=== PATIENT | male | born 1965 | race Hispanic/Latino ===

== ENCOUNTER 2019-04-23 09:42 | Inpatient (IN) | payer MEDICAID ==
[~2019-04-23] VITALS: Ht 167.6 cm; Wt 56.5 kg
[2019-04-23] VITALS (25 sets, daily range): BP systolic 90–171; BP diastolic 62–113
[2019-04-23] MEDS ORDERED: FURO20TA4 PO (10:28)
[2019-04-23] MEDS ORDERED: TAMS-1 PO (10:28)
[2019-04-23] MEDS ORDERED: SODIUM CHLORIDE 0.9% 1000ML 2,000 ML IV ONE (12:00)
[2019-04-23] MEDS ORDERED: PROPOFOL 10 MG/ML 20ML VIAL IV ONE ×4 (12:03→12:23)
[2019-04-23] MEDS ORDERED: FENTANYL CITRATE PF 50 MCG/1 ML 2ML VIAL ONE (12:20)
[2019-04-23] MEDS ORDERED: SIMETHICONE 40 MG/0.6 ML ML ONE (13:28)
--- NOTE | 2019-04-23 14:00 | NUR ---
PATIENT UP TO BATHROOM UNABLE TO PASS ANY GAS OR URINATE, BACK TO BED C/O SEVERE PAIN. DR ANGELES NOTIFIED OF PAIN , ABD 2VIEWS ORDERED.
--- NOTE | 2019-04-23 14:30 | NUR ---
DR ANGELES CALLED AGAIN FOR PAIN MEDS SHANNON ORDERED AND GIVEN. Addendum: 04/23/19 at 1736 by ROSI HENLEY RN SHANNON WATT AT [id number]
[2019-04-23] MEDS ORDERED: MORPHINE SULFATE 2 MG/ML 1ML SYG ONE (15:29)
[2019-04-23] MEDS ORDERED: MORPHINE SULFATE 2 MG/ML 1ML SYG IVP PRN (16:30)
[2019-04-23] MEDS: CEFOXITIN SODIUM 1 GM VIAL IVP SCH (17:47)
[2019-04-23] MEDS: SODIUM CHLORIDE 0.9% 1000ML 1,000 ML IV SCH (17:47)
[2019-04-23] MEDS ORDERED: MORPHINE SULFATE 2 MG/ML 1ML SYG IVP ONE (19:00)
[2019-04-23] MEDS ORDERED: ONDANSETRON HCL 4 MG/2 ML VIAL IVP PRN (19:00)
--- NOTE | 2019-04-23 20:03 | NUR ---
BLADDER SCAN WAS DONE PRIOR TO CLINE CATH ,RECORDING AT 0 POST VOID . NEW ORDER TO INSERT CLINE TO MONITOR AND HELP RELIEVE PRESSURE . CLINE CATH 16FER INSEERTED USING STERILE TECHNIQUE . 50C OF YELLOW COLORED URINE OUPT TO CLINE BAG. PATIENT TOLERATED WELL
[2019-04-23 20:18] LABS: BASOPHILS % (AUTO) 0.8 % (0.0-5.0); EOSINOPHILS % (AUTO) 0.3 % (0.0-8.0); HEMATOCRIT 51.9 % (42-54); LYMPHOCYTES % (AUTO) 16.3 % (21.0-51.0); MEAN CORPUSCULAR HGB CONC 33.2 g/dL (32.0-36.0); MEAN CORPUSCULAR VOLUME 93.5 fL (79-99); MONOCYTES % (AUTO) 3.6 % (3.0-13.0); NUCLEATED RED BLOOD CELLS 0.1 % (0.0-0.19); PLATELET COUNT (AUTO) 286 K/uL (130-400); RED BLOOD CELL COUNT(AUTO) 5.55 MIL/uL (4.50-6.20); RED CELL DISTRIBUTION WIDTH 12.8 % (11.0-15.5); WHITE BLOOD COUNT (AUTO) 1.7 K/uL (4.8-10.8)
[2019-04-23 20:26] LABS: CREATININE 1.3 mg/dL (0.5-1.5); POTASSIUM 3.4 mmol/L (3.5-5.1)
[2019-04-23] MEDS ORDERED: SIMETHICONE 80 MG TAB.CHEW PO PRN (20:30)
--- NOTE | 2019-04-23 23:11 | NUR ---
paged sponge fisherman pt bp 97/49, hr 166, r 23. fallon Ren ordered a one time ns bolus. Reports that the abd xray done at the beginning of the shift showed gas in the abdomen and to administer the simethicone and pain medications.
[2019-04-23] MEDS: MORPHINE SULFATE 2 MG/ML 1ML SYG IVP PRN (23:27)
[2019-04-24] VITALS (47 sets, daily range): BP systolic 76–147; BP diastolic 36–82
[2019-04-24] MEDS: METOPROLOL TARTRATE 1 MG/ML 5ML VIAL IV PRN (01:03)
[2019-04-24] MEDS: CEFOXITIN SODIUM 1 GM VIAL IVP SCH ×3 (01:03→16:52)
--- NOTE | 2019-04-24 01:19 | NUR ---
ELEVATED HR ADMINISTERED METOPROLOL 5MG PER MAR FOR HR >120. BP 103/73, MAP 84, HR 150. WILL CONTINUE TO MONITOR, PT ON VS MACHINE FOR MONITORING.
--- NOTE | 2019-04-24 02:24 | NUR ---
PAGED MANAGER ASSEMBLY BP 89/63, HR 130. NS CONTINUES AT 75 CC/HR. CONTINUOUS VS MONITORING ON. BERE ASHFORD ORDERED AN EKG TO BE DONE NOW AND WILL COME TO ASSESS THE PATIENT.
--- NOTE | 2019-04-24 02:27 | NUR ---
MICHAEL WHITTENP ASSESSED PT FISH, DIRECTOR OF MANAGED SERVICES ASSESS CLINE, NO ABNORMALITIES NOTED. ASSESSED ABD, ABD REMAINS TENDER. FISH ORDERED A BLADDER SCAN AND EXPLAINED TO PATIENT THAT THERE IS EXCESS GAS IN THE ABD. BLADDER SCAN SHOWED 0 CC. ORDERED TO CONTINUE MONITORING THE PATIENT.
[2019-04-24] MEDS ORDERED: KETOROLAC TROMETHAMINE 15MG/ML ONE (02:42)
[2019-04-24] MEDS ORDERED: KETOROLAC TROMETHAMINE 15MG/ML IV ONE (02:45)
[2019-04-24 05:16] LABS: BASOPHILS % (AUTO) 0.1 % (0.0-5.0); EOSINOPHILS % (AUTO) 0.1 % (0.0-8.0); HEMATOCRIT 44.8 % (42-54); LYMPHOCYTES % (AUTO) 3.8 % (21.0-51.0); MEAN CORPUSCULAR HEMOGLOBIN 31.9 pg (27.0-33.0); MEAN CORPUSCULAR HGB CONC 33.9 g/dL (32.0-36.0); MEAN CORPUSCULAR VOLUME 94.2 fL (79-99); NUCLEATED RED BLOOD CELLS 0.1 % (0.0-0.19); PLATELET COUNT (AUTO) 231 K/uL (130-400); RED BLOOD CELL COUNT(AUTO) 4.76 MIL/uL (4.50-6.20); WHITE BLOOD COUNT (AUTO) 5.4 K/uL (4.8-10.8)
--- NOTE | 2019-04-24 05:25 | NUR ---
Received pt from Nurse Farooq, transfered due to hypotension.CT abdomen was done and preliminary result revealed dilated multiple bowel loops,suggestive for bowel perforation and small amount of free fluid in the pelvis.Pt. is alert and oriented,continue to complain of abdominal pain.Pt.v/s upon arrival is BP 147 /82 HR 122 ,Sating 95% on room air.Pt. instructed to use call light for assistance.
[2019-04-24] MEDS: SODIUM CHLORIDE 0.9% 1000ML 1,000 ML IV SCH ×2 (05:26→08:33)
[2019-04-24 05:28] LABS: CREATININE 2.4 mg/dL (0.5-1.5); POTASSIUM 3.8 mmol/L (3.5-5.1)
--- NOTE | 2019-04-24 05:41 | NUR ---
KARTHIK PAGED/ CALL RETURNED INFORMED KARTHIK OF THE PT TRANSFER TO ICU AND CT ABD/ PELVIS RESULTS KARTHIK ASKED IF THE PT WAS ON FLUIDS. AND THAT SHE WOULD SEE THE PT IN THE AM
[2019-04-24] MEDS ORDERED: LACTATED RINGERS 1000ML IV SCH (06:15)
--- NOTE | 2019-04-24 06:15 | NUR ---
IRAM [place] for [employer] was called and notified of new consult, updated with pt condition, and V/S and lab results received order to give @ Liters of LR Bolus.Will continue to monitor pt.
--- NOTE | 2019-04-24 07:00 | NUR ---
DR ANGELES AT BEDSIDE, NEW ORDERS GIVEN
--- NOTE | 2019-04-24 07:30 | NUR ---
Bedside report given to incoming NOD using SBAR all questions answered.LR Bolus infusing well, pt remained alert and coherent . here making rounds.
--- NOTE | 2019-04-24 07:30 | NUR ---
INSERTED 14 FR NGT TO RT NARE, ORDERED PER DR ANGELES, PLACED TO LIS,GREEN LIGHT COLORED DRAINAGE NOTED TO SUCTION CANISTER
[2019-04-24] MEDS ORDERED: POTASSIUM CHLORIDE 20 MEQ/100 ML BAG IV SCH (08:00)
[2019-04-24] MEDS ORDERED: SODIUM CHLORIDE 0.9% 1000ML 1,000 ML IV SCH ×6 (10:00→16:45)
[2019-04-24 10:15] LABS: ABG BASE EXCESS -11.4 mmol/L (-2.0-3.0); ABG HCO3 13.6 mmol/L (21.0-28.0); ABG OXYGEN SATURATION 92.3 % (95.0-99.0); ABG PCO2 29 mmHg (35-48)
[2019-04-24] MEDS ORDERED: SODIUM BICARB 50MEQ 50ML VIAL ONE ×2 (10:17→10:23)
[2019-04-24] MEDS ORDERED: SODIUM BICARB 50MEQ 50ML VIAL IV SCH ×2 (10:30→12:45)
[2019-04-24] MEDS ORDERED: LIDOCAINE HCL-MPF 1% 2ML VIAL ONE (10:33)
[2019-04-24] MEDS ORDERED: FENTANYL 2500MCG+NS 250ML 250 ML IV ONE (10:40)
--- NOTE | 2019-04-24 10:40 | NUR ---
INTUBATED AT THIS TIME ETT 7.5, 23 AT THE LIP, SIMV RATE 24, TV 550, PEEP 5, PSV 10, FIO2 60%
[2019-04-24] MEDS ORDERED: NOREPINEPHRINE 4MG/NS 250ML 250 ML IV SCH (10:45)
[2019-04-24] MEDS ORDERED: METRONIDAZOLE 500MG/100ML BAG 100 ML IV SCH ×2 (11:00→14:00)
[2019-04-24] MEDS: ZOSYN 3.375GM+NS 50ML 50 ML IV SCH ×2 (11:05→17:21)
[2019-04-24] MEDS: SODIUM BICARB 8.4% 50ML SYRING 150 MEQ in DEXTROSE 5%-WATER 1,000 ML IV SCH ×2 (11:06→18:30)
[2019-04-24] MEDS: NOREPINEPHRINE 4MG/NS 250ML 250 ML IV SCH ×3 (11:09→23:08)
[2019-04-24] MEDS: MIDAZOLAM 100MG-0.9% NS 100ML 100 ML IV PRN (11:10)
[2019-04-24] MEDS ORDERED: HYDROCORTISONE SOD SUCCINATE 100 MG/2 ML VIAL IM SCH ×2 (11:15→21:00)
[2019-04-24 11:16] LABS: HEMATOCRIT 41.9 % (42-54); MEAN CORPUSCULAR HGB CONC 34.2 g/dL (32.0-36.0); MEAN CORPUSCULAR VOLUME 93.5 fL (79-99); NUCLEATED RED BLOOD CELLS 0.1 % (0.0-0.19); PLATELET COUNT (AUTO) 151 K/uL (130-400); RED BLOOD CELL COUNT(AUTO) 4.48 MIL/uL (4.50-6.20); RED CELL DISTRIBUTION WIDTH 12.9 % (11.0-15.5); WHITE BLOOD COUNT (AUTO) 6.1 K/uL (4.8-10.8)
[2019-04-24] MEDS: FLUCONAZOLE 400 MG/NS 200 ML 200 ML IV SCH (11:36)
[2019-04-24 11:41] LABS: INR 1.31 (0.85-1.15); PARTIAL THROMBOPLASTIN TIME 31.5 SEC (26.3-35.5); PROTHROMBIN TIME 13.6 SEC (9.6-11.6)
[2019-04-24 11:43] LABS: POTASSIUM 4.3 mmol/L (3.5-5.1)
[2019-04-24 11:57] LABS: ALBUMIN 2.2 g/dL (3.5-5.0); TOTAL PROTEIN, SERUM 5.1 g/dL (6.0-8.3)
[2019-04-24] MEDS ORDERED: GLYCOPYRROLATE 1 MG/5 ML SYRINGE ONE (12:00)
[2019-04-24] MEDS ORDERED: SUCCINYLCHOLINE 200MG/10ML SYR ONE (12:00)
[2019-04-24] MEDS ORDERED: ONDANSETRON HCL 4 MG/2 ML VIAL ONE (12:00)
[2019-04-24] MEDS ORDERED: DEXAMETHASONE SOD PHOSPHATE 10MG/ML 1ML VIAL ONE (12:00)
[2019-04-24] MEDS ORDERED: LIDOCAINE PF 2% 5ML ABBOJECT ONE (12:00)
[2019-04-24] MEDS ORDERED: ROCURONIUM 10MG/1ML SYR 10 MG/ML ML ONE ×2 (12:01→15:02)
[2019-04-24] MEDS ORDERED: PROPOFOL 10 MG/ML 20ML VIAL IV ONE (12:01)
[2019-04-24] MEDS ORDERED: NEOSTIGMINE 5MG/5ML SYR IV ONE (12:01)
[2019-04-24] MEDS ORDERED: MIDAZOLAM HCL 1 MG/ML 2ML VIAL ONE (12:01)
[2019-04-24] MEDS ORDERED: FENTANYL CITRATE PF 50 MCG/1 ML 2ML VIAL ONE (12:02)
[2019-04-24] MEDS ORDERED: DEXTROSE 50%-WATER 50 ML DISP.SYRIN IV ONE (12:29)
[2019-04-24] MEDS ORDERED: LIDOCAINE HCL-MPF 1% 2ML VIAL IV PRN (12:30)
[2019-04-24 12:39] LABS: ABG BASE EXCESS -6.3 mmol/L (-2.0-3.0); ABG OXYGEN SATURATION 99.3 % (95.0-99.0); ABG PCO2 32 mmHg (35-48)
[2019-04-24] MEDS: HYDROCORTISONE SOD SUCCINATE 100 MG/2 ML VIAL IV SCH ×2 (12:49→20:55)
[2019-04-24] MEDS: DEXTROSE 50%-WATER 50 ML DISP.SYRIN IV SCH (12:51)
--- NOTE | 2019-04-24 13:50 | NUR ---
TRANSFERRED TO THE OR VIA BED, ACCOMPANIED PER OR NURSE RE MCKINNON, TRANSPORTER, AND USAMANA
--- NOTE | 2019-04-24 14:23 | NUR ---
TYRONE NOTE PATIENT VENTED, NO FAMILY AT BEDSIDE. WILL MONITOR Addendum: 04/24/19 at 1424 by RE JETER Amended: Links added.
[2019-04-24 14:36] LABS: ABG BASE EXCESS -0.6 mmol/L (-2.0-3.0); ABG HCO3 22.7 mmol/L (21.0-28.0); ABG OXYGEN SATURATION 98.7 % (95.0-99.0); ABG PCO2 33 mmHg (35-48)
[2019-04-24] MEDS ORDERED: POTASSIUM CHLORIDE 20MEQ/100ML 200 ML IV ONE (14:39)
[2019-04-24] MEDS ORDERED: ALBUMIN (HUMAN) 5% 500 ML IV ONE (15:42)
[2019-04-24] MEDS ORDERED: EPINEPHRINE 1 MG/ML AMPULE ONE (15:45)
[2019-04-24] MEDS ORDERED: PHENYLEPHRINE HCL 10 MG/ML 1ML VIAL IV ONE (15:45)
[2019-04-24] MEDS ORDERED: ONDANSETRON HCL 4 MG/2 ML VIAL IVP PRN (16:30)
[2019-04-24] MEDS: METRONIDAZOLE 500MG/100ML BAG 100 ML IV SCH (18:38)
[2019-04-24 19:46] LABS: ALBUMIN 2.2 g/dL (3.5-5.0); BILIRUBIN,TOTAL 1.9 mg/dL (0.2-1.0); CREATININE 1.6 mg/dL (0.5-1.5); POTASSIUM 3.7 mmol/L (3.5-5.1); TOTAL PROTEIN, SERUM 4.4 g/dL (6.0-8.3)
[2019-04-24] MEDS: POTASSIUM CHLORIDE 20MEQ/100ML 100 ML IV PRN (20:55)
[2019-04-24] MEDS: MAGNESIUM 2GM PREMIX 50ML 50 ML IV PRN (21:17)
--- NOTE | 2019-04-24 22:00 | NUR ---
Fab SMITH NP NOTIFIED OF PM CMP RESULTS - K 3.7, MAGNESIUM 1.3, CALCIUM 6.4 ,NA 149. CL 112, BUN 25, CR 1.6, HR 122-125 ST,-NEW ORDERS RECEIVED TO CHANGE NS TO LR @ 150ML/HR AND ALSO CONTINUE SODIUM BICARBONATE GTT IV, 1 GRAM CA GLUCONATE, K AND MAG REPLACEMENTS.
[2019-04-24] MEDS ORDERED: CALCIUM GLUCONATE 1 GM/10 ML VIAL IV ONE ×2 (22:07→22:30)
[2019-04-24] MEDS: LACTATED RINGERS 1000ML 1,000 ML IV SCH (22:30)
[2019-04-25] VITALS (64 sets, daily range): BP systolic 85–132; BP diastolic 51–85
[2019-04-25] MEDS: CEFOXITIN SODIUM 1 GM VIAL IVP SCH ×3 (00:44→17:08)
[2019-04-25] MEDS: MIDAZOLAM 100MG-0.9% NS 100ML 100 ML IV PRN (00:45)
[2019-04-25 01:06] LABS: MAGNESIUM 1.7 mg/dL (1.80-2.40); POTASSIUM 3.2 mmol/L (3.5-5.1)
[2019-04-25] MEDS: MAGNESIUM 2GM PREMIX 50ML 50 ML IV PRN (01:36)
[2019-04-25] MEDS: SODIUM BICARB 8.4% 50ML SYRING 150 MEQ in DEXTROSE 5%-WATER 1,000 ML IV SCH ×2 (01:37→09:42)
[2019-04-25] MEDS: POTASSIUM CHLORIDE 20MEQ/100ML 100 ML IV PRN ×7 (01:37→20:23)
[2019-04-25] MEDS: METRONIDAZOLE 500MG/100ML BAG 100 ML IV SCH ×3 (04:24→18:31)
[2019-04-25 04:35] LABS: BASOPHILS % (AUTO) 0.1 % (0.0-5.0); LYMPHOCYTES % (AUTO) 2.4 % (21.0-51.0); MEAN CORPUSCULAR HEMOGLOBIN 31.1 pg (27.0-33.0); MEAN CORPUSCULAR HGB CONC 34.2 g/dL (32.0-36.0); MONOCYTES % (AUTO) 1.5 % (3.0-13.0); PLATELET COUNT (AUTO) 111 K/uL (130-400); RED BLOOD CELL COUNT(AUTO) 3.63 MIL/uL (4.50-6.20); RED CELL DISTRIBUTION WIDTH 12.8 % (11.0-15.5); WHITE BLOOD COUNT (AUTO) 8.1 K/uL (4.8-10.8)
[2019-04-25] MEDS: LACTATED RINGERS 1000ML 1,000 ML IV SCH ×3 (04:57→17:15)
[2019-04-25] MEDS: FENTANYL 2500MCG+NS 250ML 250 ML IV PRN ×2 (04:58→18:24)
[2019-04-25 05:19] LABS: CREATININE 1.4 mg/dL (0.5-1.5); MAGNESIUM 2.2 mg/dL (1.80-2.40); PHOSPHORUS 1.3 mg/dL (2.5-4.9); POTASSIUM 3.4 mmol/L (3.5-5.1)
[2019-04-25 06:22] LABS: ABG BASE EXCESS 3.1 mmol/L (-2.0-3.0); ABG HCO3 23.1 mmol/L (21.0-28.0); ABG OXYGEN SATURATION 97.7 % (95.0-99.0); ABG PCO2 25 mmHg (35-48)
[2019-04-25] MEDS: DEXTROSE 50%-WATER 50 ML DISP.SYRIN IV SCH ×2 (06:39→22:30)
[2019-04-25] MEDS: FLUCONAZOLE 400 MG/NS 200 ML 200 ML IV SCH (08:24)
[2019-04-25] MEDS: HYDROCORTISONE SOD SUCCINATE 100 MG/2 ML VIAL IV SCH ×2 (08:24→20:24)
[2019-04-25] MEDS ORDERED: FLUCONAZOLE 400 MG/NS 200 ML 200 ML IV SCH (09:00)
[2019-04-25] MEDS: POTASSIUM PHOSPHATE 15 MMOL in SODIUM CHLORIDE 0.9% 250 ML IV SCH (09:32)
[2019-04-25] MEDS: NOREPINEPHRINE 4MG/NS 250ML 250 ML IV SCH ×2 (10:22→17:09)
--- NOTE | 2019-04-25 10:27 | NUR ---
TYRONE NOTE PATIENT VENTED, NO FAMILY AT BEDSIDE. WILL MONITOR Addendum: 04/25/19 at 1028 by LOCO GREENFIELD RN CM Amended: Links added.
[2019-04-25] MEDS ORDERED: ALBUMIN (HUMAN) 5% 250 ML IV SCH (11:30)
[2019-04-25] MEDS ORDERED: ALBUMIN (HUMAN) 5% 250 ML IV ONE (11:38)
[2019-04-25] MEDS ORDERED: PHARMACY COMMUNICATION MISC SCH (11:45)
[2019-04-25] MEDS ORDERED: SODIUM CHLORIDE 0.9% 500ML 500 ML IV PRN (13:59)
[2019-04-25] MEDS ORDERED: HEPARIN SODIUM 5000UNIT/ML 1ML VIAL SQ SCH (21:00)
[2019-04-25] MEDS ORDERED: DEXTROSE 50%-WATER 25 GM/50 ML VIAL IV PRN (23:00)
[2019-04-26] VITALS (55 sets, daily range): BP systolic 102–136; BP diastolic 64–96
[2019-04-26] MEDS: LACTATED RINGERS 1000ML 1,000 ML IV SCH ×2 (00:27→06:35)
[2019-04-26] MEDS: MIDAZOLAM 100MG-0.9% NS 100ML 100 ML IV PRN (00:27)
[2019-04-26] MEDS: NOREPINEPHRINE 4MG/NS 250ML 250 ML IV SCH ×2 (00:28→10:22)
[2019-04-26] MEDS: CEFOXITIN SODIUM 1 GM VIAL IVP SCH ×3 (01:43→16:04)
[2019-04-26] MEDS: DEXTROSE 50%-WATER 50 ML DISP.SYRIN IV SCH (04:28)
[2019-04-26] MEDS: METRONIDAZOLE 500MG/100ML BAG 100 ML IV SCH ×3 (04:29→20:09)
[2019-04-26 04:59] LABS: MAGNESIUM 1.9 mg/dL (1.80-2.40); PHOSPHORUS 2.2 mg/dL (2.5-4.9); POTASSIUM 3.5 mmol/L (3.5-5.1)
[2019-04-26 05:48] LABS: HEMATOCRIT 29.2 % (42-54); LYMPHOCYTES % (AUTO) 0.9 % (21.0-51.0); MEAN CORPUSCULAR HEMOGLOBIN 31.2 pg (27.0-33.0); MEAN CORPUSCULAR HGB CONC 34.1 g/dL (32.0-36.0); MEAN CORPUSCULAR VOLUME 91.4 fL (79-99); MONOCYTES % (AUTO) 55.6 % (3.0-13.0); NEUTROPHILS % (AUTO) 43.5 % (40.0-77.0); PLATELET COUNT (AUTO) 63 K/uL (130-400); RED CELL DISTRIBUTION WIDTH 13.3 % (11.0-15.5); WHITE BLOOD COUNT (AUTO) 13.9 K/uL (4.8-10.8)
[2019-04-26] MEDS: POTASSIUM CHLORIDE 20MEQ/100ML 100 ML IV PRN ×3 (06:09→13:28)
[2019-04-26] MEDS: MAGNESIUM 2GM PREMIX 50ML 50 ML IV PRN (06:10)
[2019-04-26 07:59] LABS: ABG BASE EXCESS -0.7 mmol/L (-2.0-3.0); ABG HCO3 21.9 mmol/L (21.0-28.0); ABG OXYGEN SATURATION 98.4 % (95.0-99.0); ABG PCO2 31 mmHg (35-48)
[2019-04-26] MEDS: FENTANYL 2500MCG+NS 250ML 250 ML IV PRN (08:01)
[2019-04-26] MEDS ORDERED: PANTOPRAZOLE 40 MG/VIAL IVP SCH (09:00)
[2019-04-26] MEDS: FLUCONAZOLE 400 MG/NS 200 ML 200 ML IV SCH (09:18)
[2019-04-26] MEDS: FAMOTIDINE/PF 20 MG/2 ML VIAL IV SCH ×2 (09:19→20:09)
[2019-04-26] MEDS: HYDROCORTISONE SOD SUCCINATE 100 MG/2 ML VIAL IV SCH ×2 (09:19→20:10)
[2019-04-26 11:16] LABS: MAGNESIUM 2.3 mg/dL (1.80-2.40); POTASSIUM 3.6 mmol/L (3.5-5.1)
[2019-04-26] MEDS ORDERED: POTASSIUM PHOS 15 mMOL+NS250ML 250 ML IV PRN (13:15)
[2019-04-26] MEDS ORDERED: FUROSEMIDE 10 MG/ML 4ML VIAL IV SCH (13:15)
[2019-04-26] MEDS ORDERED: DEXTROSE 50%-WATER 25 GM/50 ML VIAL IV PRN (14:00)
--- NOTE | 2019-04-26 15:45 | NUR ---
CONSULT DR QUINN CALLED AND NOTIFIED OF CONSULT; NO NEW ORDERS AT THIS TIME
[2019-04-26] MEDS: POTASSIUM PHOSPHATE 15 MMOL in SODIUM CHLORIDE 0.9% 250 ML IV SCH (15:55)
--- NOTE | 2019-04-26 15:55 | NUR ---
SPOKE WITH ENA FROM LAB AND INFORMED HIM OF ORDER BY DR. SMITH FOR A PERIPHERAL BLOOD SMEAR TO BE READ BY DR. MIRANDA. ENA STATED HE WILL HAVE SAMPLE READY FOR WHEN DR. MIRANDA COMES IN. REPORTED OFF TO PRIMARY NURSE, Hernando AKBAR RN.
[2019-04-26] MEDS ORDERED: DEXTROSE 50%-WATER 50 ML DISP.SYRIN IV ONE (19:17)
[2019-04-27] VITALS (39 sets, daily range): BP systolic 96–182; BP diastolic 55–115
[2019-04-27] MEDS: CEFOXITIN SODIUM 1 GM VIAL IVP SCH ×3 (02:03→17:46)
[2019-04-27] MEDS: METRONIDAZOLE 500MG/100ML BAG 100 ML IV SCH ×3 (03:29→18:58)
[2019-04-27 04:29] LABS: MAGNESIUM 2.1 mg/dL (1.80-2.40); PHOSPHORUS 2.3 mg/dL (2.5-4.9); POTASSIUM 3.6 mmol/L (3.5-5.1)
[2019-04-27 04:34] LABS: HEMATOCRIT 27.8 % (42-54); MEAN CORPUSCULAR HEMOGLOBIN 30.4 pg (27.0-33.0); MEAN CORPUSCULAR HGB CONC 32.8 g/dL (32.0-36.0); MEAN CORPUSCULAR VOLUME 92.7 fL (79-99); PLATELET COUNT (AUTO) 46 K/uL (130-400); RED CELL DISTRIBUTION WIDTH 13.7 % (11.0-15.5); WHITE BLOOD COUNT (AUTO) 11.3 K/uL (4.8-10.8)
[2019-04-27] MEDS: POTASSIUM CHLORIDE 20MEQ/100ML 100 ML IV PRN ×2 (05:34→08:20)
[2019-04-27 05:41] LABS: BAND NEUTROPHILS % (MANUAL) 2 % (0-2); LYMPHOCYTES % (MANUAL) 1 % (22-44); MAN.DIFF COMMENT-IMPRESSION MANUAL DIFFERENTIAL; MONOCYTES % (MANUAL) 4 % (2-9); SEGMENTED NEUTROPHILS % 93 % (40-70)
[2019-04-27 05:42] LABS: PLATELET MORPHOLOGY COMMENT MARKED DECREASE
--- NOTE | 2019-04-27 07:00 | NUR ---
NEURO STATUS PATIENT UNAROUSABLE TO PAIN OR STIMULATION; SEDATION OFF SINCE 1400 YESTERDAY 04/26/19; DR SMITH NOTIFIED; STAT CT ORDERED
[2019-04-27] MEDS ORDERED: NALOXONE HCL 0.4 MG/1 ML ML IVP SCH (08:15)
[2019-04-27] MEDS: FAMOTIDINE/PF 20 MG/2 ML VIAL IV SCH ×2 (08:51→22:38)
[2019-04-27] MEDS: HYDROCORTISONE SOD SUCCINATE 100 MG/2 ML VIAL IV SCH ×2 (08:51→22:38)
[2019-04-27] MEDS: METOPROLOL TARTRATE 1 MG/ML 5ML VIAL IV PRN (08:53)
[2019-04-27] MEDS ORDERED: PROPOFOL 1000 MG/100 ML 100 ML IV ONE (08:58)
[2019-04-27] MEDS ORDERED: FUROSEMIDE 10 MG/ML 4ML VIAL IV SCH (09:00)
--- NOTE | 2019-04-27 09:00 | NUR ---
PATIENT STATUS PATIENT GIVEN NARCAN IV; OPENED EYES; MOVING HANDS; TREMBLING; NOT FOLLOWING COMMANDS; NONPURPOSEFUL MOVEMENTS; HR UP TO 140S; SBP 170S; DR SMITH NOTIFIED;ORDERS GIVEN TO START PATIENT ON PROPOFOL; PATIENT STARTED ON PROPOFOL AND RESEDATED.
[2019-04-27] MEDS: FLUCONAZOLE 400 MG/NS 200 ML 200 ML IV SCH (09:10)
[2019-04-27] MEDS ORDERED: PROPOFOL 1000 MG/100 ML IV PRN (09:15)
[2019-04-27] MEDS ORDERED: PROPOFOL 1000 MG/100 ML 100 ML IV PRN (09:30)
[2019-04-27 11:00] LABS: ABG BASE EXCESS -0.7 mmol/L (-2.0-3.0); ABG HCO3 23.7 mmol/L (21.0-28.0); ABG OXYGEN SATURATION 95.7 % (95.0-99.0); ABG PCO2 38 mmHg (35-48)
--- NOTE | 2019-04-27 11:30 | NUR ---
PATIENT STATUS UPDATE PROPOFOL TURNED OFF, BP CONTINUED TO TREND DOWN, BUT MAP REMAINS <65
[2019-04-27] MEDS: FUROSEMIDE 10 MG/ML 4ML VIAL IV SCH ×2 (12:10→22:39)
--- NOTE | 2019-04-27 14:00 | NUR ---
RD Notification Pt admitted for Perforation Post colonoscopy, currently s/p colotomy repair as per EMR. Pt started on Tube feedings; RD recommendations: Tube Feeding Recommendations: Vital AF 1.2, Goal 60mls/hr (1440mL/1728kcal/108gm Protein/1168 free H2O) Flushes: 140mLs Q 6hrs. Recommendations placed in Pt chart. Pt LBM 04/26/19; noted Green, Liquid/loose, Dark eleuterio urine as per EMR; will continue to monitor. Pt monitored labs: Cl 112, BUN 22, BG 126, Ca 7.0, P 2.3, Alb 2.2. RD to continue to monitor. Please notify RD as additional nutrition concerns arise. Thank you. Addendum: 04/27/19 at [address] Amended: Links added.
--- NOTE | 2019-04-27 17:45 | NUR ---
PATIENT STATUS UPDATE DR SMITH NOTIFIED THAT PATIENT IS NOT WAKING UP AT THIS TIME EVEN THOUGH SEDATION HAS BEEN OFF SINCE 1129; PATIENT WITHDRAWS TO PAIN, BUT DOES NOT OPEN EYES OR TRY TO MOVE; NO NEW ORDERS GIVEN; WILL CONTINUE TO KEEP PATIENT OFF SEDATION UNTIL NECESSARY
[2019-04-28] VITALS (24 sets, daily range): BP systolic 101–149; BP diastolic 56–92
[2019-04-28] MEDS: CEFOXITIN SODIUM 1 GM VIAL IVP SCH ×2 (01:36→09:23)
[2019-04-28] MEDS: METRONIDAZOLE 500MG/100ML BAG 100 ML IV SCH ×3 (02:09→20:10)
[2019-04-28 05:37] LABS: BASOPHILS % (AUTO) 0.1 % (0.0-5.0); HEMATOCRIT 27.6 % (42-54); LYMPHOCYTES % (AUTO) 1.6 % (21.0-51.0); MEAN CORPUSCULAR HEMOGLOBIN 31.6 pg (27.0-33.0); MEAN CORPUSCULAR HGB CONC 34.1 g/dL (32.0-36.0); MEAN CORPUSCULAR VOLUME 92.7 fL (79-99); MONOCYTES % (AUTO) 4.8 % (3.0-13.0); NEUTROPHILS % (AUTO) 93.5 % (40.0-77.0); NUCLEATED RED BLOOD CELLS 0.6 % (0.0-0.19); PLATELET COUNT (AUTO) 34 K/uL (130-400); RED BLOOD CELL COUNT(AUTO) 2.97 MIL/uL (4.50-6.20); RED CELL DISTRIBUTION WIDTH 13.6 % (11.0-15.5)
[2019-04-28 06:06] LABS: ALBUMIN 1.3 g/dL (3.5-5.0); MAGNESIUM 1.8 mg/dL (1.80-2.40)
[2019-04-28] MEDS: POTASSIUM CHLORIDE 20MEQ/100ML 100 ML IV PRN ×4 (06:25→17:24)
[2019-04-28] MEDS: MAGNESIUM 2GM PREMIX 50ML 50 ML IV PRN (06:25)
[2019-04-28 06:45] LABS: CRP QUANTITATIVE 254.1 mg/L (0.00-9.0)
--- NOTE | 2019-04-28 08:00 | NUR ---
PATIENT RECEIVED IN BED, CONTINUES ON VENTILATOR ON THE FOLLOWING SETTINGS: SIMV, 14, TV400,PS10,PEEP5,RAY922% WITH SATURATIONS AT 100%. ETT 7.5 AT THE LIP. PT IS NOT ON ANY SEDATION. PER REPORT, SEDATION WAS TURNED OFF YESTERDAY. PATIENT HAS NOT AWAKE. HE DOES OPENS EYES TO LOUD VERBAL STIMULI BUT DOES NOT TRACK VOICE, WEAK GAG NOTED AND HE DOES NOT PULL WAY TO PAIN WHEN PRESSURE APPLIED TO NAIL BED. PATIENT LIFTS UPPER ARM BUT WITH NO PURPOSEFUL MOVEMENT. NGT TO RIGHT NARE WITH VITAL AF 1.2 GOING AT 40ML/HR WITH GOAL OF 55ML/HR. PATIENT TOLERATING TUBE FEEDING WELL. PICC LINE TO HONEY 3 LUMEN. 2 PORTS PATENT. SCROTAL EDEMA NOTED. ABD INCISION OPEN TO AIR, ILEOSTOMY NOTED WITH PINK STOMA. F/C PATENT AND DRAINING TO GRAVITY. Addendum: 04/28/19 at 1119 by RACHEL LANIER RN RN Amended: Links added.
[2019-04-28 08:29] LABS: ABG BASE EXCESS 1.2 mmol/L (-2.0-3.0); ABG HCO3 25.5 mmol/L (21.0-28.0); ABG OXYGEN SATURATION 95.8 % (95.0-99.0); ABG PCO2 39 mmHg (35-48)
[2019-04-28] MEDS: HYDROCORTISONE SOD SUCCINATE 100 MG/2 ML VIAL IV SCH ×2 (09:23→20:10)
[2019-04-28] MEDS: FLUCONAZOLE 400 MG/NS 200 ML 200 ML IV SCH (09:23)
[2019-04-28] MEDS: FAMOTIDINE/PF 20 MG/2 ML VIAL IV SCH ×2 (09:24→20:10)
[2019-04-28] MEDS ORDERED: VANCOMYCIN PROTOCOL PER PHARMACY IV PRN (10:15)
[2019-04-28] MEDS ORDERED: VANCOMYCIN 1GM+NS 250ML 250 ML IV SCH (10:15)
[2019-04-28] MEDS: FUROSEMIDE 10 MG/ML 4ML VIAL IV SCH (11:46)
[2019-04-28] MEDS: MEROPENEM 500 MG VIAL IV SCH ×2 (11:47→20:09)
--- NOTE | 2019-04-28 13:42 | NUR ---
MD ROUNDS DR. SMITH IN TO SEE PATIENT. UPDATED ON STATUS. NEW ORDERS FOR DR. VILLAREAL CONSULT IN A.M.
[2019-04-28] MEDS ORDERED: FUROSEMIDE 10 MG/ML 4ML VIAL IV SCH (14:15)
[2019-04-28 15:18] LABS: MAGNESIUM 2.1 mg/dL (1.80-2.40); POTASSIUM 3.3 mmol/L (3.5-5.1)
[2019-04-28] MEDS: ARTIFICAL TEARS SOL 15 ML OD SCH (20:23)
[2019-04-29] VITALS (25 sets, daily range): BP systolic 116–172; BP diastolic 67–102
[2019-04-29] MEDS: FUROSEMIDE 10 MG/ML 4ML VIAL IV SCH ×3 (00:08→23:04)
[2019-04-29 03:53] LABS: BASOPHILS % (AUTO) 0.1 % (0.0-5.0); HEMATOCRIT 28.3 % (42-54); MEAN CORPUSCULAR HEMOGLOBIN 30.9 pg (27.0-33.0); MEAN CORPUSCULAR HGB CONC 33.6 g/dL (32.0-36.0); MONOCYTES % (AUTO) 3.4 % (3.0-13.0); NEUTROPHILS % (AUTO) 94.5 % (40.0-77.0); PLATELET COUNT (AUTO) 55 K/uL (130-400); RED BLOOD CELL COUNT(AUTO) 3.08 MIL/uL (4.50-6.20); RED CELL DISTRIBUTION WIDTH 13.8 % (11.0-15.5)
[2019-04-29 04:09] LABS: CREATININE 0.9 mg/dL (0.5-1.5); MAGNESIUM 1.9 mg/dL (1.80-2.40); PHOSPHORUS 3.4 mg/dL (2.5-4.9)
[2019-04-29] MEDS: MEROPENEM 500 MG VIAL IV SCH ×3 (04:17→18:19)
[2019-04-29] MEDS: METRONIDAZOLE 500MG/100ML BAG 100 ML IV SCH ×3 (04:17→18:50)
[2019-04-29 04:18] LABS: POTASSIUM 2.9 mmol/L (3.5-5.1)
[2019-04-29] MEDS: POTASSIUM CHLORIDE 20MEQ/100ML 100 ML IV PRN ×4 (04:21→19:52)
[2019-04-29] MEDS: FLUCONAZOLE 400 MG/NS 200 ML 200 ML IV SCH (08:16)
[2019-04-29] MEDS: FAMOTIDINE/PF 20 MG/2 ML VIAL IV SCH ×2 (08:16→20:01)
[2019-04-29] MEDS: ARTIFICAL TEARS SOL 15 ML OD SCH ×2 (08:16→20:04)
[2019-04-29] MEDS: HYDROCORTISONE SOD SUCCINATE 100 MG/2 ML VIAL IV SCH ×2 (08:16→20:02)
[2019-04-29] MEDS: MAGNESIUM 2GM PREMIX 50ML 50 ML IV PRN (16:08)
[2019-04-29] MEDS ORDERED: METOPROLOL TARTRATE 1 MG/ML 5ML VIAL IV PRN (17:00)
[2019-04-29] MEDS: METOPROLOL TARTRATE 1 MG/ML 5ML VIAL IV SCH ×2 (17:30→23:03)
[2019-04-29] MEDS: ACETAMINOPHEN ELIXIR 650 MG/20.3 ML UDCUP PEG PRN (20:01)
[2019-04-29] MEDS: MORPHINE SULFATE 2 MG/ML 1ML SYG IVP PRN (20:58)
--- NOTE | 2019-04-29 21:02 | NUR ---
CAMP TENDER Flavio notified about pt HR and pt is restrlessand moving ,pt is awake .No new order received.
[2019-04-30] VITALS (29 sets, daily range): BP systolic 107–164; BP diastolic 65–106
[2019-04-30] MEDS: MEROPENEM 500 MG VIAL IV SCH ×3 (02:22→18:02)
[2019-04-30 03:54] LABS: HEMATOCRIT 30.2 % (42-54); MEAN CORPUSCULAR HEMOGLOBIN 31.1 pg (27.0-33.0); MEAN CORPUSCULAR VOLUME 91.5 fL (79-99); NUCLEATED RED BLOOD CELLS 0.1 % (0.0-0.19); PLATELET COUNT (AUTO) 80 K/uL (130-400); RED CELL DISTRIBUTION WIDTH 13.9 % (11.0-15.5); WHITE BLOOD COUNT (AUTO) 18.6 K/uL (4.8-10.8)
[2019-04-30 03:59] LABS: CARBON DIOXIDE 35 mmol/L (21-32); CHLORIDE 113 mmol/L (101-111); CREATININE 0.9 mg/dL (0.5-1.5); GLOMERULAR FILTR. RATE CALC 93 mL/min (>60); GLUCOSE,RANDOM 170 mg/dL (70-105); SODIUM SERUM 153 mmol/L (136-145); UREA NITROGEN, BLOOD 29 mg/dL (7-18)
[2019-04-30] MEDS: METRONIDAZOLE 500MG/100ML BAG 100 ML IV SCH ×3 (04:09→18:03)
[2019-04-30 04:23] LABS: AMMONIA < 10 umol/L (11-32); POTASSIUM 2.9 mmol/L (3.5-5.1)
[2019-04-30] MEDS: POTASSIUM CHLORIDE 20MEQ/100ML 100 ML IV PRN ×7 (05:33→22:42)
[2019-04-30] MEDS: METOPROLOL TARTRATE 1 MG/ML 5ML VIAL IV SCH ×4 (05:33→22:15)
--- NOTE | 2019-04-30 07:25 | NUR ---
Bedside report given to incoming NOD using SBAR,all questions answered.Reviewed labs ,meds and V/S.Pt. remained vented and wakes up occasionaly but does not follow commands.
[2019-04-30] MEDS: FLUCONAZOLE 400 MG/NS 200 ML 200 ML IV SCH (09:03)
[2019-04-30] MEDS: FAMOTIDINE/PF 20 MG/2 ML VIAL IV SCH ×2 (09:03→20:16)
[2019-04-30] MEDS: ACETAMINOPHEN ELIXIR 650 MG/20.3 ML UDCUP PEG PRN ×3 (09:03→20:37)
[2019-04-30] MEDS: ARTIFICAL TEARS SOL 15 ML OD SCH ×2 (09:04→20:16)
[2019-04-30] MEDS: HYDROCORTISONE SOD SUCCINATE 100 MG/2 ML VIAL IV SCH (09:04)
[2019-04-30] MEDS ORDERED: VANCOMYCIN PROTOCOL PER PHARMACY IV SCH (10:45)
--- NOTE | 2019-04-30 11:30 | NUR ---
DR. ANGELES IN TO SEE PT. PLAN OF CARE DISCUSSED. YAZMIN TO LOWER INCISION REMOVED BY MD AND WET TO DRY DRESSING APPLIED. RIGHT LATERAL ARNULFO DISCONTINUED ORDERED. CONTINUE TO MONITOR PT.
[2019-04-30] MEDS: FUROSEMIDE 10 MG/ML 4ML VIAL IV SCH ×2 (13:38→22:14)
[2019-04-30] MEDS: VANCOMYCIN 1GM+NS 250ML 250 ML IV SCH ×2 (13:40→20:17)
--- NOTE | 2019-04-30 14:23 | NUR ---
DC PLAN VISITED WITH PATIENT NO FAMILY AT BEDSIDE. WILL CONTINUE TO MONITOR. Addendum: 04/30/19 at 1429 by DANIELITO BLANCA RN CM Amended: Links added.
--- NOTE | 2019-04-30 15:00 | NUR ---
DR. CABEZAS IN TO SEE PT FOR CONSULT.
--- NOTE | 2019-04-30 15:20 | NUR ---
PT TAKEN TO CT FT CTA CHEST. TOLERATED WELL. CONTINUES RESTLESS, MOVIN GALL EXTREMITIES OPENS EYES, NODS OCCASIONALLY BUT UNABLE TO FOLLOW COMMANDS.
[2019-04-30] MEDS ORDERED: IOHEXOL-350 75 ML VIAL IV ONE (15:23)
--- NOTE | 2019-04-30 16:02 | NUR ---
RD Follow Up note Pt with Colon CA, s/p resection, colostomy creation, with sepsis as per EMR. Pt tolerating Vital AF 1.2 @55mls/hr with no GI distress. Pt off sedation, however nonresponsive as per EMR. Pt LBM 04/27. Pt monitored labs: Na 153, K 2.9, Cl 113, CO2 35, BUN 29, BG 123, Ca 7.6, Crp <10, Alb 1.3. Noted Bilat. hand, 3+ non-pitting/scrotal 4+ non-pitting edema as per EMR. RD to continue to monitor. Please notify RD as additional nutrition concerns arise. Thank you. Addendum: 04/30/19 at [address] Amended: Links added.
--- NOTE | 2019-04-30 19:00 | NUR ---
Assumed care at 1900. Patient in no apparent distress. Please see physical assessment for further detail. Will continue to monitor.
[2019-04-30] MEDS: ONDANSETRON HCL 4 MG/2 ML VIAL IVP PRN (23:56)
[2019-05-01] VITALS (41 sets, daily range): BP systolic 106–163; BP diastolic 61–104
[2019-05-01] MEDS: ACETAMINOPHEN ELIXIR 650 MG/20.3 ML UDCUP PEG PRN (00:15)
[2019-05-01] MEDS: MEROPENEM 500 MG VIAL IV SCH ×3 (01:57→17:27)
[2019-05-01] MEDS: METRONIDAZOLE 500MG/100ML BAG 100 ML IV SCH ×3 (02:30→17:26)
[2019-05-01] MEDS: ONDANSETRON HCL 4 MG/2 ML VIAL IVP PRN (03:59)
[2019-05-01 04:01] LABS: BASOPHILS % (AUTO) 0.2 % (0.0-5.0); HEMATOCRIT 38.5 % (42-54); LYMPHOCYTES % (AUTO) 2.6 % (21.0-51.0); MEAN CORPUSCULAR HEMOGLOBIN 30.5 pg (27.0-33.0); MEAN CORPUSCULAR HGB CONC 33.2 g/dL (32.0-36.0); MONOCYTES % (AUTO) 2.8 % (3.0-13.0); NEUTROPHILS % (AUTO) 94.4 % (40.0-77.0); NUCLEATED RED BLOOD CELLS 0.1 % (0.0-0.19); PLATELET COUNT (AUTO) 155 K/uL (130-400); RED BLOOD CELL COUNT(AUTO) 4.18 MIL/uL (4.50-6.20); RED CELL DISTRIBUTION WIDTH 13.9 % (11.0-15.5); WHITE BLOOD COUNT (AUTO) 27.4 K/uL (4.8-10.8)
[2019-05-01 04:11] LABS: CREATININE 0.9 mg/dL (0.5-1.5); MAGNESIUM 1.6 mg/dL (1.80-2.40); POTASSIUM 3.2 mmol/L (3.5-5.1)
[2019-05-01] MEDS: POTASSIUM CHLORIDE 20MEQ/100ML 100 ML IV PRN ×4 (04:32→20:23)
[2019-05-01] MEDS: METOPROLOL TARTRATE 1 MG/ML 5ML VIAL IV SCH ×4 (04:32→22:41)
[2019-05-01 05:15] LABS: ABG BASE EXCESS 6.1 mmol/L (-2.0-3.0); ABG HCO3 29.4 mmol/L (21.0-28.0); ABG PCO2 38 mmHg (35-48)
--- NOTE | 2019-05-01 05:40 | NUR ---
Patient bit through ETT sdv pilot/navigator/dds operator balloon at 0445. Patient HOB positioned at 60 degrees. Feeding stopped and place NG on wall suction. RT called. HARNESS PREPARER Freddy called. Orders to extubate with BiPAP PRN given. ABGs within parameters to extubate. Patient following commands. Patient extubated at 0520. Patient in no distress on aerosol mask with O2 saturation at 99% with a respiratory rate of 14. Post extubation ABG ordered. Will continue to monitor.
[2019-05-01 06:14] LABS: ABG BASE EXCESS 4.2 mmol/L (-2.0-3.0); ABG HCO3 26.7 mmol/L (21.0-28.0); ABG OXYGEN SATURATION 99.1 % (95.0-99.0); ABG PCO2 34 mmHg (35-48)
--- NOTE | 2019-05-01 07:00 | NUR ---
AM NOTE Awake, alert, and oriented to person. On aerosol mask at 40%fi02. Instructed not to speak for 2 hours post extubation, nods understanding. Generalized weakness but able to move all extremities. Nasogastric tube in place, clamped. Side rails up. Repositioned. Sinus tachycardia in 130s. Call hawkins within reach.
[2019-05-01] MEDS: FLUCONAZOLE 400 MG/NS 200 ML 200 ML IV SCH (08:06)
[2019-05-01] MEDS: ARTIFICAL TEARS SOL 15 ML OD SCH ×2 (08:06→20:21)
[2019-05-01] MEDS: VANCOMYCIN 1GM+NS 250ML 250 ML IV SCH (08:06)
[2019-05-01] MEDS: FAMOTIDINE/PF 20 MG/2 ML VIAL IV SCH ×2 (08:06→20:27)
[2019-05-01] MEDS ORDERED: METHYLPREDNISOLONE 4 MG TABLET PO SCH (09:00)
[2019-05-01] MEDS ORDERED: HEPARIN SODIUM 5000UNIT/ML 1ML VIAL SQ PRN (09:15)
[2019-05-01 10:30] LABS: INR 1.24 (0.85-1.15); PROTHROMBIN TIME 12.9 SEC (9.6-11.6)
[2019-05-01] MEDS: FUROSEMIDE 10 MG/ML 4ML VIAL IV SCH ×2 (10:59→22:45)
--- NOTE | 2019-05-01 11:00 | NUR ---
MD VISIT Dr. Okeefe in to see pt, plan of care discussed. New orders received.
[2019-05-01] MEDS: MAGNESIUM 2GM PREMIX 50ML 50 ML IV PRN (11:02)
[2019-05-01] MEDS: METOCLOPRAMIDE 10 MG/2 ML VIAL IVP SCH ×2 (11:34→17:27)
[2019-05-01] MEDS: ALBUTEROL SULFATE 0.083% 2.5 MG/3 ML INH IH SCH ×2 (12:22→18:11)
[2019-05-01] MEDS: IPRATROPIUM 0.5 MG/2.5 ML INH IH SCH ×2 (12:22→18:11)
[2019-05-01] MEDS: ACETYLCYSTEINE 20% 200MG/ML 4ML VIAL IH SCH ×2 (12:31→18:11)
--- NOTE | 2019-05-01 13:00 | NUR ---
PICC 6FR triple lumen PICC line placement complete, tolerated well. Addendum: 05/01/19 at 1551 by DEV GREENFIELD RN note intended for another patient.
--- NOTE | 2019-05-01 15:50 | NUR ---
REPORT Repot given to RE Hernandez.
[2019-05-01] MEDS ORDERED: VANCOMYCIN 1.5 GM in SODIUM CHLORIDE 0.9% 250 ML IV ONE (21:00)
[2019-05-01] MEDS ORDERED: MORPHINE SULFATE 2 MG/ML 1ML SYG IM PRN (21:15)
[2019-05-01] MEDS: MORPHINE SULFATE 2 MG/ML 1ML SYG IVP PRN (22:14)
[2019-05-02] VITALS (22 sets, daily range): BP systolic 110–129; BP diastolic 63–88
[2019-05-02] MEDS: METOCLOPRAMIDE 10 MG/2 ML VIAL IVP SCH ×4 (00:42→18:08)
[2019-05-02] MEDS: MEROPENEM 500 MG VIAL IV SCH ×3 (00:42→18:07)
[2019-05-02] MEDS: METRONIDAZOLE 500MG/100ML BAG 100 ML IV SCH ×2 (03:15→11:13)
[2019-05-02 03:57] LABS: BASOPHILS % (AUTO) 0.1 % (0.0-5.0); EOSINOPHILS % (AUTO) 0.2 % (0.0-8.0); HEMATOCRIT 33.5 % (42-54); MEAN CORPUSCULAR HEMOGLOBIN 30.7 pg (27.0-33.0); MEAN CORPUSCULAR HGB CONC 33.4 g/dL (32.0-36.0); MEAN CORPUSCULAR VOLUME 91.7 fL (79-99); MONOCYTES % (AUTO) 4.1 % (3.0-13.0); NEUTROPHILS % (AUTO) 92.6 % (40.0-77.0); PLATELET COUNT (AUTO) 204 K/uL (130-400); RED BLOOD CELL COUNT(AUTO) 3.65 MIL/uL (4.50-6.20); WHITE BLOOD COUNT (AUTO) 22.8 K/uL (4.8-10.8)
[2019-05-02 04:12] LABS: B-TYPE NATRIURETIC PEPTIDE 840 pg/mL (0-100)
[2019-05-02 04:16] LABS: BILIRUBIN,TOTAL 1.6 mg/dL (0.2-1.0); CREATININE 0.9 mg/dL (0.5-1.5); MAGNESIUM 1.9 mg/dL (1.80-2.40); PHOSPHORUS 2.9 mg/dL (2.5-4.9); POTASSIUM 3.4 mmol/L (3.5-5.1); TOTAL PROTEIN, SERUM 6.4 g/dL (6.0-8.3)
[2019-05-02 04:28] LABS: INR 1.19 (0.85-1.15); PARTIAL THROMBOPLASTIN TIME 39.4 SEC (26.3-35.5); PROTHROMBIN TIME 12.4 SEC (9.6-11.6)
[2019-05-02] MEDS: METOPROLOL TARTRATE 1 MG/ML 5ML VIAL IV SCH ×3 (05:15→18:07)
[2019-05-02] MEDS: VANCOMYCIN 1.5 GM in SODIUM CHLORIDE 0.9% 250 ML IV SCH ×2 (05:16→18:22)
[2019-05-02] MEDS: POTASSIUM CHLORIDE 20MEQ/100ML 100 ML IV PRN (05:17)
[2019-05-02] MEDS: IPRATROPIUM 0.5 MG/2.5 ML INH IH SCH ×4 (06:09→23:17)
[2019-05-02] MEDS: ALBUTEROL SULFATE 0.083% 2.5 MG/3 ML INH IH SCH ×4 (06:10→23:17)
[2019-05-02] MEDS: ACETYLCYSTEINE 20% 200MG/ML 4ML VIAL IH SCH ×4 (06:10→23:17)
--- NOTE | 2019-05-02 07:35 | NUR ---
ASSESSMENT AA - reoriented to day/date/time of day. Repositioned with HOB @30-degrees. Side rails up for safety. NGT placement verified per routine. TF @55ml/hr - 0ml residual obtained. ST on tele with strong apical heart tones. Skin is warm, dry. VS as recorded. Assisted with oral care. Pt remains NPO. Abd soft - tender with palpation but denies acute pain. RLQ colostomy patent with green liquid output. F/C patent. RUE limb precautions secondary to DVT - limb alert tag in use. PIVs to LUE patent. Assessment completed/recorded. Call light within reach.
[2019-05-02 07:48] LABS: ABG BASE EXCESS 2.7 mmol/L (-2.0-3.0); ABG HCO3 25.5 mmol/L (21.0-28.0); ABG OXYGEN SATURATION 98.6 % (95.0-99.0); ABG PCO2 34 mmHg (35-48)
[2019-05-02] MEDS: ARTIFICAL TEARS SOL 15 ML OD SCH ×2 (09:00→21:00)
--- NOTE | 2019-05-02 10:00 | NUR ---
PT CARE Right sided port a cath accessed using aseptic technique.
[2019-05-02] MEDS ORDERED: METOPROLOL TARTRATE 1 MG/ML 5ML VIAL IV ONE (10:03)
[2019-05-02] MEDS: FAMOTIDINE/PF 20 MG/2 ML VIAL IV SCH ×2 (10:12→21:00)
[2019-05-02] MEDS: FLUCONAZOLE 400 MG/NS 200 ML 200 ML IV SCH (10:12)
[2019-05-02] MEDS: FUROSEMIDE 10 MG/ML 4ML VIAL IV SCH ×2 (10:54→23:15)
[2019-05-02] MEDS: HEPARIN 25000 UNITS/250 ML D5W 250 ML IV PRN (11:03)
[2019-05-02] MEDS ORDERED: COMPOUND IV REFRIGERATED 1 EACH IVSOLN MISC PRN (11:45)
--- NOTE | 2019-05-02 12:28 | NUR ---
RD FOLLOW UP Pt is s/p extubation. Pt continues on tube feedings, Vital AF 1.2 @55mls/hr. Pt tolerating tube feedings, no report of GI distress. PICC Line discontinued as per EMR. Pt LBM 05/01/19. Pt monitored labs: Na 149, K 3.4, BUN 21, Glu 142, Ca 7.9, T. Bili 1.6, AST 40, Alb 2.0, Procalcitonin 4.07, BNP 840. RD to continue to monitor. Please notify RD as additional nutrition concerns arise. Thank you. Addendum: 05/02/19 at [address] Amended: Links added.
--- NOTE | 2019-05-02 13:12 | NUR ---
DYSPHAGIA EVAL COMPLETED. +S/S OF ASPIRATION WITH THIN LIQUIDS VIA CUP SIP. RECOMMEND MECHANICAL SOFT/CHOPPED, THIN LIQUIDS VIA TSP, PILLS WHOLE WITH LIQUIDS. RECOMMENDATIONS: 1.DYSPHAGIA THERAPY 3-5X WEEK TO INCREASE ORAL MOTOR STRENGTH AND PHARYNGEAL SWALLOW: LTG#1: Pt WILL TOLERATE LEAST RESTRICTIVE DIET TO MEET NUTRITION/HYDRATION WITH NO S/S OF ASPIRATION. LTG#2: SKILLED EDUCATION Pt/FAMILY/STAFF STG#1: Pt WILL PARTICIPATE IN LARYNGEAL ELEVATION/EXCURSION EXERCISES WITH 80% ACCURACY. STG#2: Pt WILL PARTICIPATE IN PHARYNGEAL STRENGTHENING EXERCISES WITH 80% ACCURACY. STG#3: Pt WILL TOLERATE CURRENT DIET OF [facility] SOFT/CHOPPED, THIN LIQUIDS WITH NO OVERT S/S OF ASPIRATION. STG#4: Pt WILL TOLERATE THERAPEUTIC TRIALS OF ADVANCED TEXTURES OF REGULAR AND THIN LIQUIDS VIA CUP SIP WITH NO OVERT S/S OF ASPIRATION. STG#5: Pt WILL COMPLETE SAFE SWALLOW PRECAUTION INDEPENDENTLY WITH 100% ACCURACY. STG#6: SKILLED EDUCATION Pt/FAMILY/STAFF. Addendum: 05/02/19 at 1316 by GALLO FRENCH, [address] ST Amended: Links added.
--- NOTE | 2019-05-02 16:00 | NUR ---
PT ROUNDS ANYA Saravia for , in to see pt - updated. Plan of care discussed. made aware of recent speech evaluation and recommendations.
--- NOTE | 2019-05-02 17:00 | NUR ---
TRANSFER Transferred to room 230 by bed. Care of pt endorsed to RE Greene. Pt positioned for comfort. Needed items within reach. Oriented to room.
[2019-05-03] MEDS: MEROPENEM 500 MG VIAL IV SCH ×3 (02:06→18:56)
[2019-05-03] MEDS: METOPROLOL TARTRATE 1 MG/ML 5ML VIAL IV SCH ×4 (02:06→19:02)
[2019-05-03] MEDS: METRONIDAZOLE 500MG/100ML BAG 100 ML IV SCH ×4 (02:07→19:46)
[2019-05-03] MEDS: METOCLOPRAMIDE 10 MG/2 ML VIAL IVP SCH ×4 (02:08→18:57)
[2019-05-03 04:00] VITALS: BP 126/72
[2019-05-03 05:38] LABS: BASOPHILS % (AUTO) 0.4 % (0.0-5.0); EOSINOPHILS % (AUTO) 0.3 % (0.0-8.0); HEMATOCRIT 30.8 % (42-54); LYMPHOCYTES % (AUTO) 2.9 % (21.0-51.0); MEAN CORPUSCULAR HEMOGLOBIN 30.1 pg (27.0-33.0); MEAN CORPUSCULAR HGB CONC 33.1 g/dL (32.0-36.0); MONOCYTES % (AUTO) 4.6 % (3.0-13.0); NEUTROPHILS % (AUTO) 91.8 % (40.0-77.0); PLATELET COUNT (AUTO) 294 K/uL (130-400); RED BLOOD CELL COUNT(AUTO) 3.38 MIL/uL (4.50-6.20); RED CELL DISTRIBUTION WIDTH 13.9 % (11.0-15.5); WHITE BLOOD COUNT (AUTO) 17.4 K/uL (4.8-10.8)
[2019-05-03 05:55] LABS: CREATININE 0.7 mg/dL (0.5-1.5); MAGNESIUM 1.7 mg/dL (1.80-2.40); POTASSIUM 3.2 mmol/L (3.5-5.1)
[2019-05-03] MEDS: ACETAMINOPHEN ELIXIR 650 MG/20.3 ML UDCUP PEG PRN (06:12)
[2019-05-03] MEDS: IPRATROPIUM 0.5 MG/2.5 ML INH IH SCH ×4 (06:45→23:05)
[2019-05-03] MEDS: ALBUTEROL SULFATE 0.083% 2.5 MG/3 ML INH IH SCH ×4 (06:45→23:05)
[2019-05-03] MEDS: ACETYLCYSTEINE 20% 200MG/ML 4ML VIAL IH SCH ×4 (06:45→23:05)
[2019-05-03 07:35] VITALS: BP 116/72
[2019-05-03] MEDS: FAMOTIDINE/PF 20 MG/2 ML VIAL IV SCH ×2 (08:34→20:00)
[2019-05-03] MEDS: FLUCONAZOLE 400 MG/NS 200 ML 200 ML IV SCH (08:35)
[2019-05-03] MEDS: HEPARIN 25000 UNITS/250 ML D5W 250 ML IV PRN (09:07)
[2019-05-03 11:40] VITALS: BP 125/72
[2019-05-03] MEDS: ARTIFICAL TEARS SOL 15 ML OD SCH ×2 (11:43→20:00)
[2019-05-03] MEDS: FUROSEMIDE 10 MG/ML 4ML VIAL IV SCH (11:44)
[2019-05-03] MEDS: VANCOMYCIN 1.5 GM in SODIUM CHLORIDE 0.9% 250 ML IV SCH ×2 (11:50→19:02)
[2019-05-03 15:30] VITALS: BP 114/71
[2019-05-03 19:56] VITALS: BP 120/70
[2019-05-03 23:29] VITALS: BP 118/73
--- NOTE | 2019-05-04 | NUR ---
PATIENT FOUND ON FLOOR , PATIENT STATES HE "SLID ONTO FLOOR " ASSISTED BACK TO BED BY STAFF. PATIENT DENIED PAIN, DOMESTIC CLEANER LISE, Michel CROWE RN NOTIFIED WITH NEW ORDERS RECEIVED. Addendum: 05/05/19 at 0159 by MAREK GILES RN RN INCORRECT TIME
[2019-05-04] MEDS: METOPROLOL TARTRATE 1 MG/ML 5ML VIAL IV SCH ×5 (00:15→23:48)
[2019-05-04] MEDS: METOCLOPRAMIDE 10 MG/2 ML VIAL IVP SCH ×5 (00:15→23:48)
[2019-05-04] MEDS: FUROSEMIDE 10 MG/ML 4ML VIAL IV SCH ×3 (00:15→23:47)
[2019-05-04] MEDS: MEROPENEM 500 MG VIAL IV SCH ×3 (03:35→17:31)
[2019-05-04] MEDS: METRONIDAZOLE 500MG/100ML BAG 100 ML IV SCH ×2 (03:36→13:24)
[2019-05-04 03:46] LABS: HEMATOCRIT 29.2 % (42-54); MEAN CORPUSCULAR HEMOGLOBIN 30.3 pg (27.0-33.0); MEAN CORPUSCULAR HGB CONC 33.3 g/dL (32.0-36.0); MEAN CORPUSCULAR VOLUME 90.9 fL (79-99); PLATELET COUNT (AUTO) 374 K/uL (130-400); RED BLOOD CELL COUNT(AUTO) 3.21 MIL/uL (4.50-6.20); RED CELL DISTRIBUTION WIDTH 13.8 % (11.0-15.5); WHITE BLOOD COUNT (AUTO) 16.8 K/uL (4.8-10.8)
[2019-05-04 03:57] LABS: BILIRUBIN,TOTAL 1.1 mg/dL (0.2-1.0); CREATININE 0.8 mg/dL (0.5-1.5); MAGNESIUM 1.8 mg/dL (1.80-2.40); TOTAL PROTEIN, SERUM 6.4 g/dL (6.0-8.3)
[2019-05-04] MEDS: POTASSIUM CHLORIDE 20MEQ/100ML 100 ML IV PRN ×4 (04:05→23:51)
[2019-05-04 04:16] LABS: BAND NEUTROPHILS % (MANUAL) 3 % (0-2); LYMPHOCYTES % (MANUAL) 5 % (22-44); MAN.DIFF COMMENT-IMPRESSION MANUAL DIFFERENTIAL; MONOCYTES % (MANUAL) 4 % (2-9); PLATELET MORPHOLOGY COMMENT ADEQUATE; SEGMENTED NEUTROPHILS % 88 % (40-70)
[2019-05-04] MEDS: HEPARIN 25000 UNITS/250 ML D5W 250 ML IV PRN ×2 (04:20→22:06)
[2019-05-04 04:37] VITALS: BP 105/60
[2019-05-04] MEDS: VANCOMYCIN 1.5 GM in SODIUM CHLORIDE 0.9% 250 ML IV SCH ×3 (06:05→23:53)
[2019-05-04] MEDS: ACETYLCYSTEINE 20% 200MG/ML 4ML VIAL IH SCH ×4 (07:01→23:22)
[2019-05-04] MEDS: IPRATROPIUM 0.5 MG/2.5 ML INH IH SCH ×4 (07:01→23:22)
[2019-05-04] MEDS: ALBUTEROL SULFATE 0.083% 2.5 MG/3 ML INH IH SCH ×4 (07:01→23:22)
[2019-05-04 07:40] VITALS: BP 114/68
[2019-05-04] MEDS: FLUCONAZOLE 400 MG/NS 200 ML 200 ML IV SCH (09:40)
[2019-05-04] MEDS: ARTIFICAL TEARS SOL 15 ML OD SCH ×2 (09:41→21:23)
[2019-05-04] MEDS: FAMOTIDINE/PF 20 MG/2 ML VIAL IV SCH ×2 (09:41→21:23)
[2019-05-04 11:40] VITALS: BP 124/74
[2019-05-04 15:30] VITALS: BP 121/72
--- NOTE | 2019-05-04 19:38 | NUR ---
SBAR REPORT HANDED TO MAREK GRIMALDO. RIGHT ILEOSTOMY BAG AND MID-ABDOMINAL DRESSING WERE CHANGED TODAY. ABDOMINAL BINDER IN PLACE ORDERED. PATIENT CONTINUES IV ANTIBIOTICS AND HEPARIN DRIP AT 1300UNITS/HR. NEXT PTT CHECK TOMORROW MORNING AT 4AM. PATIENT'S POTASSIUM IS BEING REPLACED.
[2019-05-04 20:17] VITALS: BP 120/73
--- NOTE | 2019-05-04 23:45 | NUR ---
PATIENT FOUND ON FLOOR , PATIENT STATES HE "SLID ONTO FLOOR " ASSISTED BACK TO BED BY STAFF. PATIENT DENIED PAIN, MACHINE MAINTENANCE REPAIRER Michel LEZAMA RN NOTIFIED WITH NEW ORDERS RECEIVED
[2019-05-05] VITALS (8 sets, daily range): BP systolic 111–149; BP diastolic 66–77
[2019-05-05] MEDS: MEROPENEM 500 MG VIAL IV SCH ×3 (01:50→17:43)
[2019-05-05 02:14] LABS: HEMATOCRIT 29.5 % (42-54); MEAN CORPUSCULAR HEMOGLOBIN 30.3 pg (27.0-33.0); MEAN CORPUSCULAR HGB CONC 33.6 g/dL (32.0-36.0); MEAN CORPUSCULAR VOLUME 90.2 fL (79-99); PLATELET COUNT (AUTO) 478 K/uL (130-400); RED BLOOD CELL COUNT(AUTO) 3.27 MIL/uL (4.50-6.20); RED CELL DISTRIBUTION WIDTH 13.5 % (11.0-15.5); WHITE BLOOD COUNT (AUTO) 17.2 K/uL (4.8-10.8)
[2019-05-05 02:30] LABS: CREATININE 0.9 mg/dL (0.5-1.5); POTASSIUM 3.5 mmol/L (3.5-5.1)
[2019-05-05 04:34] LABS: BAND NEUTROPHILS % (MANUAL) 6 % (0-2); LYMPHOCYTES % (MANUAL) 5 % (22-44); MAN.DIFF COMMENT-IMPRESSION MANUAL DIFFERENTIAL; MONOCYTES % (MANUAL) 4 % (2-9); PLATELET MORPHOLOGY COMMENT SLIGHT INCREASED; SEGMENTED NEUTROPHILS % 85 % (40-70)
[2019-05-05] MEDS: METOCLOPRAMIDE 10 MG/2 ML VIAL IVP SCH ×3 (05:16→17:44)
[2019-05-05] MEDS: METOPROLOL TARTRATE 1 MG/ML 5ML VIAL IV SCH ×3 (05:17→18:13)
[2019-05-05] MEDS: POTASSIUM CHLORIDE 20MEQ/100ML 100 ML IV PRN ×2 (05:43→10:25)
--- NOTE | 2019-05-05 06:00 | NUR ---
COMPLETE BATH GIVEN , LINENS CHANGED . SKIN WITH NO VISIBLE BRUISES, PATIENT DENIES PAIN OR DISCOMFORT, NO TENDERNESS ON PALPATION. PATIENT TRANSFERRED TO BED EQUIPPED WITH BED ALARM- EXPLAINED TO PATIENT ANDBED ALARM TURNED ON.
[2019-05-05] MEDS: ACETYLCYSTEINE 20% 200MG/ML 4ML VIAL IH SCH ×2 (07:02→18:24)
[2019-05-05] MEDS: ALBUTEROL SULFATE 0.083% 2.5 MG/3 ML INH IH SCH (07:02)
[2019-05-05] MEDS: IPRATROPIUM 0.5 MG/2.5 ML INH IH SCH (07:02)
--- NOTE | 2019-05-05 07:30 | NUR ---
ATTEMPT TO CALL PATIENT'S DAUGHTER - NO ANSWER.
[2019-05-05] MEDS: FLUCONAZOLE 400 MG/NS 200 ML 200 ML IV SCH (10:24)
[2019-05-05] MEDS: FAMOTIDINE/PF 20 MG/2 ML VIAL IV SCH ×2 (10:24→22:05)
[2019-05-05] MEDS: FUROSEMIDE 10 MG/ML 4ML VIAL IV SCH (10:25)
[2019-05-05] MEDS: ARTIFICAL TEARS SOL 15 ML OD SCH ×2 (10:41→22:06)
--- NOTE | 2019-05-05 14:55 | NUR ---
DC PLAN VISITED WITH PATIENT. GAVE VERBAL AGGREMENT FOR WIR. PATIENT DEBILITATED AFTER SURGERY AND VENT. LET REP KNOW. VISITED WITH PATIENT. Addendum: 05/05/19 at 1456 by DANIELITO BLANCA RN CM Amended: Links added.
--- NOTE | 2019-05-05 15:08 | NUR ---
RD FOLLOW UP NOTE Pt tolerating Mechanical Soft, Chopped diet with no report of GI distress, Fair PO intake at 50% as per Pt. Pt reports gets full quickly, however reports appetite is getting a little better. Pt likes Ensure and applesauce. Recommend to add 30mL ProMod TID secondary to PCM. Pt LBM 05/04. Pt monitored labs: BUN 23, BG 132, Ca 8.0, T. Bili 1.1, Alb 2.0. RD to continue to monitor. Please notify RD as additional nutrition concerns arise. Thank you. Addendum: 05/05/19 at [address] Amended: Links added.
--- NOTE | 2019-05-05 15:10 | NUR ---
HAROON PLAN PATIENT LIVES WITH COUABDIAS. SAID HE HAD FINISHED CHEMO AND HAD BEEN DOING BETTER. NO EQUIPMENT OR OTHER SERVICES. GAVE OKAY TO SEND INFO TO [facility]. Addendum: 05/05/19 at 1511 by DANIELITO BLANCA RN CM Amended: Links added.
[2019-05-05] MEDS: VANCOMYCIN 1.5 GM in SODIUM CHLORIDE 0.9% 250 ML IV SCH (17:45)
[2019-05-05] MEDS: MEROPENEM 1 GM VIAL IVP SCH (18:00)
[2019-05-05] MEDS ORDERED: METOPROLOL TARTRATE 25 MG TAB PO SCH (21:00)
[2019-05-05] MEDS: APIXABAN 5 MG TABLET PO SCH (22:05)
[2019-05-05] MEDS: MORPHINE SULFATE 2 MG/ML 1ML SYG IVP PRN (23:59)
[2019-05-06] MEDS: MEROPENEM 1 GM VIAL IVP SCH ×3 (02:05→20:41)
[2019-05-06 03:47] VITALS: BP 145/83
[2019-05-06 04:59] LABS: CREATININE 0.8 mg/dL (0.5-1.5); CRP QUANTITATIVE 96.1 mg/L (0.00-9.0); MAGNESIUM 1.9 mg/dL (1.80-2.40); PHOSPHORUS 2.5 mg/dL (2.5-4.9); POTASSIUM 3.7 mmol/L (3.5-5.1)
[2019-05-06] MEDS: MAGNESIUM 2GM PREMIX 50ML 50 ML IV PRN (06:21)
[2019-05-06] MEDS: MORPHINE SULFATE 2 MG/ML 1ML SYG IVP PRN ×4 (06:22→16:10)
[2019-05-06 08:10] VITALS: BP 124/79
[2019-05-06] MEDS ORDERED: METOPROLOL TARTRATE 1 MG/ML 5ML VIAL IV SCH (08:30)
[2019-05-06] MEDS ORDERED: METOPROLOL TARTRATE 1 MG/ML 5ML VIAL IV ONE (08:30)
[2019-05-06] MEDS: LACTOBACILLUS RHAMNOSUS GG 1 EACH CAP.SPRINK PO SCH (08:38)
[2019-05-06] MEDS: FUROSEMIDE 20 MG TABLET PO SCH ×2 (08:38→16:56)
[2019-05-06] MEDS: APIXABAN 5 MG TABLET PO SCH ×2 (08:38→20:37)
[2019-05-06] MEDS: ARTIFICAL TEARS SOL 15 ML OD SCH ×2 (08:39→20:36)
[2019-05-06] MEDS: FAMOTIDINE 20MG TAB 20 MG TAB PO SCH ×2 (08:42→20:37)
[2019-05-06] MEDS: FLUCONAZOLE 400 MG/NS 200 ML 200 ML IV SCH (08:44)
[2019-05-06 11:49] VITALS: BP 130/79
[2019-05-06] MEDS ORDERED: VANCOMYCIN 750 GM in SODIUM CHLORIDE 0.9% 250 ML IV SCH (12:20)
[2019-05-06] MEDS: METOPROLOL TARTRATE 25 MG TAB PO SCH ×3 (12:29→20:40)
--- NOTE | 2019-05-06 13:15 | NUR ---
[facility] Declined Per Keo garcia/ JOSE R, will not be able to accept patient. [facility] in [place] might be able to. Notified patient of this. Patient stated okay to proceed with STR to [facility]. Salazar and Ele with STR evaluated patient at 1130. Pending acceptance. Notified Salazar and Ele of patient's needs: Wound Vac, IV ABX for 1 week, and PT. Verbalized understanding. CM to continue to follow. Plan B is to SNF. CD Addendum: 05/06/19 at 1317 by PAT CHANDLER CM Amended: Links added.
[2019-05-06 15:47] VITALS: BP 138/78
--- NOTE | 2019-05-06 16:00 | NUR ---
[facility] consult Patient assessed then wound vac applied as ordered. Skin prep and drape applied to periwound skin then adaptic applied on wound bed; 2 pieces black foam in wound bed and wound vac applied and sealed without leaks at 125 mmhg continuous suction. Patient tolerated application without adverse effects. Report given to patient's nurse, Jessica GRIMALDO. Addendum: 05/06/19 at 1630 by BENIGNO RILEY RN/ Amended: Links added.
[2019-05-06 19:32] VITALS: BP 143/80
[2019-05-06] MEDS: TRAMADOL HCL 50 MG TABLET PO PRN (20:37)
[2019-05-06] MEDS: VANCOMYCIN 750 GM in SODIUM CHLORIDE 0.9% 250 ML IV SCH (21:33)
[2019-05-06 23:39] VITALS: BP 122/84
[2019-05-07] MEDS: MORPHINE SULFATE 2 MG/ML 1ML SYG IVP PRN ×3 (00:38→20:43)
[2019-05-07 03:47] VITALS: BP 114/74
[2019-05-07 04:07] LABS: BASOPHILS % (AUTO) 1.1 % (0.0-5.0); EOSINOPHILS % (AUTO) 0.4 % (0.0-8.0); HEMATOCRIT 30.8 % (42-54); MEAN CORPUSCULAR HGB CONC 33.9 g/dL (32.0-36.0); MEAN CORPUSCULAR VOLUME 91.4 fL (79-99); MONOCYTES % (AUTO) 9.8 % (3.0-13.0); NEUTROPHILS % (AUTO) 83.7 % (40.0-77.0); RED BLOOD CELL COUNT(AUTO) 3.37 MIL/uL (4.50-6.20); RED CELL DISTRIBUTION WIDTH 13.9 % (11.0-15.5); WHITE BLOOD COUNT (AUTO) 17.9 K/uL (4.8-10.8)
[2019-05-07 04:10] LABS: PLATELET COUNT (AUTO) 720 K/uL (130-400)
[2019-05-07 04:25] LABS: CREATININE 0.8 mg/dL (0.5-1.5); MAGNESIUM 2.1 mg/dL (1.80-2.40); PHOSPHORUS 2.9 mg/dL (2.5-4.9); POTASSIUM 4.4 mmol/L (3.5-5.1)
[2019-05-07 04:26] LABS: B-TYPE NATRIURETIC PEPTIDE 84 pg/mL (0-100)
[2019-05-07] MEDS: MEROPENEM 1 GM VIAL IVP SCH ×3 (05:26→23:09)
[2019-05-07] MEDS: METOPROLOL TARTRATE 25 MG TAB PO SCH ×3 (05:27→23:23)
[2019-05-07] MEDS: TRAMADOL HCL 50 MG TABLET PO PRN ×4 (05:39→23:10)
--- NOTE | 2019-05-07 05:44 | NUR ---
Instructions given to pt prior to ARNULFO removal.ARNULFO removed ,dressing applied,no bleeding ,no hematoma and bruising noted.Pt. tolerated procedure well.ill continue to monitor pt.
--- NOTE | 2019-05-07 07:15 | NUR ---
Pt. remained stable, report given to incoming NOD using SBr all questions answered.
[2019-05-07] MEDS: LACTOBACILLUS RHAMNOSUS GG 1 EACH CAP.SPRINK PO SCH (07:34)
[2019-05-07] MEDS: VANCOMYCIN 750 GM in SODIUM CHLORIDE 0.9% 250 ML IV SCH (07:34)
[2019-05-07] MEDS: FLUCONAZOLE 400 MG/NS 200 ML 200 ML IV SCH (07:34)
[2019-05-07] MEDS: FAMOTIDINE 20MG TAB 20 MG TAB PO SCH ×2 (07:34→20:43)
[2019-05-07] MEDS: APIXABAN 5 MG TABLET PO SCH ×2 (07:34→20:43)
[2019-05-07] MEDS: ARTIFICAL TEARS SOL 15 ML OD SCH ×2 (07:35→23:22)
[2019-05-07] MEDS: FUROSEMIDE 20 MG TABLET PO SCH ×2 (07:35→16:09)
[2019-05-07 07:44] VITALS: BP 128/78
--- NOTE | 2019-05-07 08:00 | NUR ---
ASSESSMENT PT IS RESTING IN BED, DENIES CP DENIES SOB DENIES NV NO COMPLAINTS. WOUNDVAC IN PLACE WITH ADEQUATE SEAL. IV ABX INFUSING ORDERED. TOLERATED SMALL AMOUNT OF BREAKFAST AND MEDS. ABD BINDER IN PLACE, OSTOMY BAG DRAINED OF STOOL. CALL LIGHT WITHIN REACH.
--- NOTE | 2019-05-07 10:00 | NUR ---
SWALLOW TREATMENT COMPLETED. Pt SEATED AT 90 DEGREES IN BED. Pt COOPERATIVE DURING THE SESSION. Pt PARTICIPATED IN 10 TRIALS OF THIN LIQUIDS AND REGULAR TEXTURE WITH IMPROVED ORAL MOTOR COORDINATION AND STRENGTH, IMPROVED PHARYNGEAL RESPONSE TIMELINESS. NO OVERT S/S OF ASPIRATION PRESENT AT THE TIME OF THE SESSION. RECOMMEND DIET UPGRADE TO REGULAR TEXTURE, THIN LIQUIDS;PILLS WHOLE. Pt HAS REACHED LEAST RESTRICTIVE DIET. DISCHARGE FROM SKILLED SPEECH THERAPY. Addendum: 05/07/19 at 1252 by GALLO FRENCH, [facility] Amended: Links added.
[2019-05-07 11:39] VITALS: BP 116/74
--- NOTE | 2019-05-07 13:00 | NUR ---
DR ANGELES ROUNDED / ORDERS CARRIED OUT ORDERED TO LEAVE WOUNDVAC IN PLACE TILL SUNDAY, (BARELY PLACED 05-07-19 PM) REMOVED YAZMIN THAT WERE VISIBLE ABOVE WOUNDVAC (10 YAZMIN REMOVED). ASSISTED PATIENT BACK TO BED. MEDS GIVEN AND TOLERATED. Addendum: 05/07/19 at 1302 by NICOLE PETERS RN RN WOUNDVAC PLACED 05-06-19 PM
[2019-05-07 15:55] VITALS: BP 123/67
--- NOTE | 2019-05-07 16:13 | NUR ---
DC PLAN SPOKE TO ALLA FROM [facility] NOT ABLE TO TAKE PATIENT RECOMMENDED STR. STR SENT SUPERIOR FORM SIGNED AND RETURNED. PENDING INSURANCE AUTH. Addendum: 05/07/19 at 1616 by DANIELITO BLANCA RN CM Amended: Links added.
--- NOTE | 2019-05-07 18:35 | NUR ---
STATUS RESTING IN BED NO COMPLAINTS AT THIS TIME. WOUND VAC REMAINS WITH ADEQUATE SEAL.
[2019-05-07 20:15] VITALS: BP 132/80
[2019-05-07] MEDS ORDERED: VANCOMYCIN 0.75 GM in SODIUM CHLORIDE 0.9% 250 ML IV SCH (21:00)
[2019-05-07] MEDS: VANCOMYCIN 1GM+NS 250ML 250 ML IV SCH (23:30)
[2019-05-08] VITALS: BP 142/79
--- NOTE | 2019-05-08 | NUR ---
PT CONTINIOUSLY BEING REMINDED TO MINIMIZE MOVEMENT TO ABD AREA. PT CONTINUES TO MOVE ABDOMINAL AREA FREQUENTLY. WOUND NOTED TO INCREASE IN SIZE. WOUND CARE COMPLETED TO SITE.
[2019-05-08] MEDS: MORPHINE SULFATE 2 MG/ML 1ML SYG IVP PRN (02:05)
[2019-05-08] MEDS: TRAMADOL HCL 50 MG TABLET PO PRN ×2 (03:48→20:32)
[2019-05-08 04:08] VITALS: BP 143/84
[2019-05-08 04:30] LABS: BASOPHILS % (AUTO) 0.6 % (0.0-5.0); EOSINOPHILS % (AUTO) 0.4 % (0.0-8.0); HEMATOCRIT 29.7 % (42-54); LYMPHOCYTES % (AUTO) 4.9 % (21.0-51.0); MEAN CORPUSCULAR HEMOGLOBIN 30.7 pg (27.0-33.0); MEAN CORPUSCULAR HGB CONC 34.1 g/dL (32.0-36.0); MEAN CORPUSCULAR VOLUME 89.9 fL (79-99); MONOCYTES % (AUTO) 9.7 % (3.0-13.0); NEUTROPHILS % (AUTO) 84.4 % (40.0-77.0); WHITE BLOOD COUNT (AUTO) 14.3 K/uL (4.8-10.8)
[2019-05-08 04:36] LABS: PLATELET COUNT (AUTO) 766 K/uL (130-400)
[2019-05-08 04:40] LABS: CREATININE 0.8 mg/dL (0.5-1.5); POTASSIUM 3.9 mmol/L (3.5-5.1)
--- NOTE | 2019-05-08 04:46 | NUR ---
GEOFFREY WHITTEN NOTIFIED OF PLT CRITICAL RESULT OF 766, TRENDING UP SINCE 05/05. GEOFFREY STATED NO NEW ORDERS AND THAT THEY WOULD ROUND ON HIM AND FOLLOW UP IN THE MORNING.
[2019-05-08] MEDS: METOPROLOL TARTRATE 25 MG TAB PO SCH ×2 (06:19→14:37)
[2019-05-08] MEDS: MEROPENEM 1 GM VIAL IVP SCH ×2 (06:19→14:37)
[2019-05-08] MEDS: FUROSEMIDE 20 MG TABLET PO SCH ×2 (07:36→16:37)
[2019-05-08] MEDS: FLUCONAZOLE 400 MG/NS 200 ML 200 ML IV SCH (07:36)
[2019-05-08] MEDS: VANCOMYCIN 1GM+NS 250ML 250 ML IV SCH (07:36)
[2019-05-08] MEDS: LACTOBACILLUS RHAMNOSUS GG 1 EACH CAP.SPRINK PO SCH (07:36)
[2019-05-08] MEDS: FAMOTIDINE 20MG TAB 20 MG TAB PO SCH (07:36)
[2019-05-08] MEDS: APIXABAN 5 MG TABLET PO SCH (07:37)
[2019-05-08] MEDS: ARTIFICAL TEARS SOL 15 ML OD SCH (07:42)
--- NOTE | 2019-05-08 08:00 | NUR ---
ASSESSMENT PT IS AAOX3 RESTING IN BED. DENIES CP DENIES SOB DENIES NV NO COMPLAINTS AT THIS TIME, ABD BINDER IN PLACE, WOUND VAC WITH SUCTION NO LEAKS NOTED ON MACHINE. AM MEDS GIVEN AND TOLERATED, BREAKFAST TOLERATED WELL. CALL LIGHT WITHIN REACH.
[2019-05-08 08:02] VITALS: BP 134/74
--- NOTE | 2019-05-08 10:36 | NUR ---
TELE PACK REMOVED
[2019-05-08 12:00] VITALS: BP 124/82
--- NOTE | 2019-05-08 13:51 | NUR ---
ATTEMPTED TO GIVE REPORT TO STR STAFF STATES THAT THEY ARE NOT READY TO RECEIVE PAPERWORK
--- NOTE | 2019-05-08 14:06 | NUR ---
REPORT GIVEN TO SANDEEP EVERETT AT [facility]
--- NOTE | 2019-05-08 14:28 | NUR ---
REMOVED WOUNDVAC PLACED WET TO DRY DRESSING IN MID ABD SITE. WAITING FOR EMS TRANSPORT TO [facility].
--- NOTE | 2019-05-08 14:49 | NUR ---
Nutrition f/u: Pt continues on regular diet with poor po intake. Pt taking nutrition supplement, 8oz TID. Pt states he is full after nutrition supplement. Pt with 0%intake of meals. Recommendations: Continue current diet therapy. Encourage pt to eat meals first, nutrition supplement between. Recommend appetite stimulant to encourage increased PO intake. Monitor PO intake and tolerance. Consult RD as nutrition concerns arise. Addendum: 05/08/19 at [address] Amended: Links added.
--- NOTE | 2019-05-08 15:01 | NUR ---
DC PLAN RECEIVED FAX THAT PATIENT APPROVED FOR STR. CALLED REP SAID WOULD CHECK. CALLED ME BACK AT 1340 SAID PATIENT ACCEPTED. LET NURSE KNOW. EMS SET UP FOR PATIENT. DEBILITATED, WOUND VAC, MARLYN S/P COLECTOMY, 02 2L NC. MOT STARTED IN CHART. Addendum: 05/08/19 at 1503 by DANIELITO BLANCA RN CM Amended: Links added.
[2019-05-08 15:36] VITALS: BP 129/79
--- NOTE | 2019-05-08 15:44 | NUR ---
AWAITING EMS SINCE 1428 EMS CALLED, STATES PATIENT IS ON THE LIST FOR TRANSPORT
--- NOTE | 2019-05-08 18:08 | NUR ---
[facility]ED [facility] STATE THAT PATIENT IS NEXT ON THE LIST FOR CALCINE FURNACE TENDER
--- NOTE | 2019-05-08 19:15 | NUR ---
SHARAN MAURO. STATES PT IS NEXT, HAS BEEN PENDING TRANSFER SINCE 3PM. Addendum: 05/08/19 at 2013 by NOAH FARAH RN RN SAMPLE EXAMINER NOTIFIED
[2019-05-08 20:12] VITALS: BP 113/82
--- NOTE | 2019-05-08 22:02 | NUR ---
EMS HERE TO TRANSFER PT TO STR. PT STABLE. NO CONCERNS AT THIS TIME.
== END 2019-05-08 22:10 | DRG 950 ==
LOC: DAH 09:42 → ENDO 09:42 → 3CH 09:43 → ENDO 09:43 → 2BH 04-24 05:15 → OBSVTOIN 04-24 05:39 → 2AH 05-02 16:58
PROVIDERS: ADMIT Student in an Organized Health Care Education/Training Program; ATTEND Student in an Organized Health Care Education/Training Program
PROC: 0BH17EZ Insertion of Endotracheal Airway into Trachea, Via Natural or Artificial Opening (ICD-10-PCS; 2019-04-24)
PROC: 5A1955Z Respiratory Ventilation, Greater than 96 Consecutive Hours (ICD-10-PCS; 2019-04-24)
PROC: 02HV33Z Insertion of Infusion Device into Superior Vena Cava, Percutaneous Approach (ICD-10-PCS; 2019-04-24)
PROC: 0DBM0ZZ Excision of Descending Colon, Open Approach (ICD-10-PCS; 2019-04-24)
PROC: 0WUF0JZ Supplement Abdominal Wall with Synthetic Substitute, Open Approach (ICD-10-PCS; principal; 2019-04-24 14:26)
PROC: 4A00X4Z Measurement of Central Nervous Electrical Activity, External Approach (ICD-10-PCS; 2019-04-30)
PROC: 0DBE8ZX Excision of Large Intestine, Via Natural or Artificial Opening Endoscopic, Diagnostic (ICD-10-PCS; 2019-04-30)
DX: J95.821 Acute postprocedural respiratory failure (principal); R65.21 Severe sepsis with septic shock; K63.1 Perforation of intestine (nontraumatic); K65.0 Generalized (acute) peritonitis; A41.9 Sepsis, unspecified organism; G93.40 Encephalopathy, unspecified; I82.621 Acute embolism and thrombosis of deep veins of right upper extremity; J15.6 Pneumonia due to other Gram-negative bacteria; K91.71 Accidental puncture and laceration of a digestive system organ or structure during a digestive system procedure; K65.9 Peritonitis, unspecified; I82.C11 Acute embolism and thrombosis of right internal jugular vein; I82.A11 Acute embolism and thrombosis of right axillary vein; I82.611 Acute embolism and thrombosis of superficial veins of right upper extremity; B95.2 Enterococcus as the cause of diseases classified elsewhere; D64.9 Anemia, unspecified; T81.41XA Infection following a procedure, superficial incisional surgical site, initial encounter; Y95 Nosocomial condition; T81.32XA Disruption of internal operation (surgical) wound, not elsewhere classified, initial encounter; E11.649 Type 2 diabetes mellitus with hypoglycemia without coma; N17.9 Acute kidney failure, unspecified; C34.90 Malignant neoplasm of unspecified part of unspecified bronchus or lung; R10.0 Acute abdomen; D47.3 Essential (hemorrhagic) thrombocythemia; R18.8 Other ascites; K62.4 Stenosis of anus and rectum; C79.9 Secondary malignant neoplasm of unspecified site; K43.5 Parastomal hernia without obstruction or gangrene; K62.89 Other specified diseases of anus and rectum; E87.70 Fluid overload, unspecified; N43.3 Hydrocele, unspecified; C20 Malignant neoplasm of rectum; E87.1 Hypo-osmolality and hyponatremia; K66.0 Peritoneal adhesions (postprocedural) (postinfection); N50.89 Other specified disorders of the male genital organs; E87.6 Hypokalemia; Y83.8 Other surgical procedures as the cause of abnormal reaction of the patient, or of later complication, without mention of misadventure at the time of the procedure; C19 Malignant neoplasm of rectosigmoid junction; Z85.048 Personal history of other malignant neoplasm of rectum, rectosigmoid junction, and anus; Z93.3 Colostomy status; Z86.718 Personal history of other venous thrombosis and embolism; Y92.89 Other specified places as the place of occurrence of the external cause; Z82.49 Family history of ischemic heart disease and other diseases of the circulatory system; Z74.01 Bed confinement status
CPT/HCPCS: 31500; 36415; 36600; 45380; 70450; 71045; 71275; 74018; 74021; 74176; 76870; 80048; 80053; 80202; 82040; 82140; 82435; 82803; 82947; 82948; 83605; 83735; 83880; 84100; 84132; 84133; 84145; 84295; 85018; 85025; 85027; 85610; 85730; 86140; 87040; 87070; 87071; 87076; 87077; 87088; 87186; 87205; 88305; 92526; 92610; 93005; 93970; 93971; 94002; 94003; 94640; 94664; 95819; 97039; A4357; A4606; A5061; C1751; C1894; C9113; G0378; J0171; J0330; J0610; J0694; J1100; J1450; J1644; J1720; J1885; J1940; J2001; J2185; J2250; J2310; J2370; J2405; J2543; J2704; J2710; J2765; J3010; J3370; J3475; J3480; J3490; J7030; J7040; J7070; J7120; J7509; J7608; P9045; Q9967

== ENCOUNTER 2019-12-12 09:00 | Inpatient (IN) | payer MEDICAID ==
[~2019-12-12] VITALS: Ht 167.6 cm; Wt 60.6 kg
[2019-12-12] MEDS ORDERED: SODIUM CHLORIDE 0.9% 1000ML 1,000 ML IV SCH (15:30)
[2019-12-16 08:59] VITALS: BP 137/75; PULSE 79; RESP 18; TEMP 97.6
[2019-12-17] VITALS (32 sets, daily range): BP systolic 106–163; BP diastolic 63–98; PULSE 66–135; RESP 12–20; TEMP 97.3–98.1
--- NOTE | 2019-12-17 10:49 | NUR ---
NPO STATUS: DR. ANTONIO NOTIFIED OF NPO STATUS ON 12/17/19 AT 10:00 10 OUNCES OF PRE-SURGERY ENSURE CLEAR PER ORDERS OF DR. ANGELES. NO ORDERS GIVEN, OK TO PROCEED WITH SURGERY.
[2019-12-17] MEDS ORDERED: LACTATED RINGERS 1000ML 1,000 ML IV ONE (11:04)
[2019-12-17] MEDS ORDERED: CEFAZOLIN SODIUM 1 GM VIAL ONE ×2 (11:04→16:11)
--- NOTE | 2019-12-17 11:28 | NUR ---
POTENTIAL FOR INFECTION: SHAVED WITH CLIPPER ENTIRE ABDOMEN PER AUGIE PABLO, FOLLOWED BY WIPING WITH JIA: 2% CHLORHEXIDINE GLUCONATE CLOTH PATIENTS PRE-OP SKIN PREP.
[2019-12-17] MEDS ORDERED: LIDOCAINE PF 2% 5ML ABBOJECT ONE (12:12)
[2019-12-17] MEDS ORDERED: SUCCINYLCHOLINE CHLORIDE 20 MG/ML 10 ML VIAL ONE (12:12)
[2019-12-17] MEDS ORDERED: DEXAMETHASONE SOD PHOSPHATE 10MG/ML 1ML VIAL ONE (12:12)
[2019-12-17] MEDS ORDERED: PROPOFOL 10 MG/ML 20ML VIAL IV ONE (12:13)
[2019-12-17] MEDS ORDERED: ROCURONIUM 10MG/1ML SYR 10 MG/ML ML ONE (12:13)
[2019-12-17] MEDS ORDERED: GLYCOPYRROLATE 1 MG/5 ML SYRINGE ONE (12:13)
[2019-12-17] MEDS ORDERED: MIDAZOLAM HCL 1 MG/ML 2ML VIAL ONE ×2 (12:13→12:16)
[2019-12-17] MEDS ORDERED: FENTANYL CITRATE PF 50 MCG/1 ML 2ML VIAL ONE ×2 (12:13→16:14)
[2019-12-17] MEDS ORDERED: NEOSTIGMINE 5MG/5ML SYR IV ONE (12:13)
[2019-12-17] MEDS: CEFAZOLIN SODIUM 1 GM VIAL IVP SCH ×2 (12:45→16:45)
[2019-12-17] MEDS ORDERED: ALBUMIN (HUMAN) 5% 500 ML IV ONE (13:01)
[2019-12-17] MEDS ORDERED: FENTANYL CITRATE PF 50 MCG/1 ML 5ML AMP IV ONE (13:10)
[2019-12-17] MEDS ORDERED: PHENYLEPHRINE HCL 10 MG/ML 1ML VIAL IV ONE (13:36)
[2019-12-17] MEDS ORDERED: MEPERIDINE-PF 25 MG/ML SYG ONE ×2 (18:12→18:27)
--- NOTE | 2019-12-17 19:00 | NUR ---
RECEIVED TO ROOM 304, S/P EXP. LAP. COMPONENT SEPARATION AND VENTRAL HERNIA REPAIR AND CLOSURE OF STOMA.EPIDURAL IN PLACE AT 7CC HR, 02 PER NC AT 3 LITERS, SATS AT 98% IVF INFUSING A VIA 20G TO LT. ARM. ABD DRESSING IN PLACE, CLEAN AND DRY ABD BINDER ON. ARNULFO TO IAN COMPRESSION LT. AND RT LOWER ABD. CLINE CATH DRAINING TO GRAVITY. WAKES UP BUT DOSES OFF RIGHT AWAY, PER RR NURSE KEPT ASKING FOR PAIN MED.
[2019-12-17] MEDS ORDERED: MORPHINE SULFATE 4 MG/1ML SYG IVP PRN (20:30)
[2019-12-17] MEDS: SODIUM CHLORIDE 0.9% 1000ML 1,000 ML IV SCH (20:51)
--- NOTE | 2019-12-17 20:55 | NUR ---
MEDS SHIFT ASSESSMENT DONE, PLEASE REFER TO CHART. PT CLAIMS OF POST OP PAINS. EXPLAINED THAT HE IS ALREADY ON A CONTINUES EPIDURAL DRIP. AND SHOWED PT HOW TO GIVE HIMSELF ON DEMAND DOSE. CONTINUED IVF OF NS REGULATED AT 100CC/HR. EXPLAINED NPO STATUS BUT PROVIDED ICE CHIPS TO MOISTEN HIS MOUTH. SCD'S CONNECTED TO MACHINE AND STARTED. NGT MAINTAINED TO LIS. KEPT RESTED WITH HOB ELEVATED. CALL LIGHT WITHIN REACH. WILL MONITOR CLOSELY. Addendum: 12/17/19 at 7071 by ALVA ELLIOTT RN RN Amended: Links added.
--- NOTE | 2019-12-17 22:50 | NUR ---
IS RT CALLED TO STAR IS FOR PT. BETTERT IN AND INSTRUCTED PT. PT ABLE TO DO 4 BREATHS AND VOLUME AT 1000. PT INSTRUCTED TO DO IS Q1H WHILE AWAKE. EXPLAINED THAT PAIN WILL BE FELT WHEN DOING DEEP BREATHING BUT SX JUST RECENT TO PAIN IS EXPECTED. KEPT EPIDURAL CONTINUOS AND PER DEMAND. KEPT ABDOMINAL BINDER ON AT ALL TIMES.
[2019-12-18] VITALS (9 sets, daily range): BP systolic 133–151; BP diastolic 58–89; PULSE 88–103; RESP 19–20; TEMP 97.5–99.5
--- NOTE | 2019-12-18 01:45 | NUR ---
PAIN PT AWAKENS WHEN ANALYST COMPETITIVE INTELLIGENCE ENTERS ROOM. SLEPT AT INTERVALS. CLAIMS OF SX PAINS WHEN MOVING. RE-EXPLAINED TO PT TO USE THE PREPARED FOODS SERVICE TEAM MEMBER PER DEMAND. NEW BAG FOR EPIDURAL PREPARED FOODS SERVICE TEAM MEMBER HUNG. WILL RE-ASSESS PT.
[2019-12-18] MEDS: SODIUM CHLORIDE 0.9% 1000ML 1,000 ML IV SCH ×2 (05:42→16:30)
--- NOTE | 2019-12-18 05:42 | NUR ---
IVF PT AWAKENS WHEN KETTLEMAN ENTERS ROOM. CLAIMS TO HAVE DOSED OFF. STILL CLAIMS OF PAIN WHEN MOVING. REMINDED OF SHOP FOREMAN USE. POSITIONED COMFORTABLY IN BED. WILL MONITOR PT.
[2019-12-18] MEDS ORDERED: PHENOL 177 ML BOTTLE PO PRN (13:30)
[2019-12-18] MEDS: MORPHINE SULFATE 4 MG/1ML SYG IV PRN (13:49)
--- NOTE | 2019-12-18 16:00 | NUR ---
MET WITH PATIENT FOR DC PLANNING. S/P ABDOMINAL SURGERY TODAY PATIENT STATED LIVES IN HOME W ALESSANDRA TUTTLE WHO IS ALSO HIS PROVIDER; HE WILL ASSIST WITH TRANSPORT HOME.HAS DAUGHTER ON FACE SHEET, ALL NUMBERS VERIFIED. STATES HAS BEEN DISABLED SECOND TO [facility] SINCE 2017- HAS "TWO BAGS" AT ONE TIME-(?) THIS IS THE SECOND TO BE REVERSED. WAS USING [facility] PRIOR TO SURGERY, HAS 3/ SHOWER CHAIR. ANTICIPATING WILL NEED HOME HEALTH AT DISCHARGE FOR INCISION CARE/SURVEILLANCE- WILL WAIT FOR MD RECOMMENDATIONS. 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 Addendum: 12/19/19 at 0850 by DAMIEN DAMON RN CM Amended: Links added.
--- NOTE | 2019-12-18 20:00 | NUR ---
ASSESS PT RESTING IN BED. SHIFT ASSESSMENT DONE, PLEASE REFER TO CHART. KEPT NPO. CONTINUED IVF AND EPIDURAL CHOKER SETTER. PAIN UNDER CONTROL THIS TIME PER PT. WILL CONTINUE TO MONITOR. Addendum: 12/19/19 at 0210 by ALVA ELLIOTT RN RN Amended: Links added.
--- NOTE | 2019-12-18 22:00 | NUR ---
ROUNDS PT INFORMS FOOD PRODUCTION MACHINE OPERATOR THAT HE IS USING HIS FERMENTATION MANAGER PUMP AT THIS TIME HE IS HAVING POST OP PAINS. WILL RE-ASSESS PT.
[2019-12-19] VITALS (7 sets, daily range): BP systolic 113–166; BP diastolic 66–90; PULSE 63–114; RESP 18–20; TEMP 98.1–101.1
[2019-12-19] MEDS: SODIUM CHLORIDE 0.9% 1000ML 1,000 ML IV SCH ×3 (01:46→20:04)
--- NOTE | 2019-12-19 02:00 | NUR ---
ROUNDS PT RESTING WELL, FAIRLY ASLEEP WITH RESPIRATIONS EVEN AND UNLABORED. NO NOTED DISTRESS. KEPT UNDISTURBED FOR NOW. CALL LIGHT WITHIN REACH. WILL MONITOR PT.
--- NOTE | 2019-12-19 07:20 | NUR ---
REPORT REPORT GIVEN TO RE BARRAGAN. NURSE'S ROUNDS DONE. FOR MORE CARE AND MANAGEMENT.
[2019-12-19] MEDS ORDERED: NALOXONE HCL 0.4 MG/1 ML ML IVP PRN (08:00)
[2019-12-19] MEDS: ROPIVACAINE 0.2% 100ML VIAL 100 ML EP SCH ×2 (11:19→22:47)
--- NOTE | 2019-12-19 17:22 | NUR ---
discharge plan: back to home patient will decline snf, may need hh. will see how he does in next 48 hrs Addendum: 12/19/19 at 1723 by DAMIEN DAMON RN CM Amended: Links added.
--- NOTE | 2019-12-19 20:00 | NUR ---
MEDS SHIFT ASSESSMENT DONE, PLEASE REFER TO CHART. IVF AND EPIDURAL DOSE CONTINUED. WEANED OFF FROM O2. NO RESPIRATORY DISTRESS NOTED. ENCOURAGED IS. THROAT SPRAY AT BEDSIDE AND PT CLAIMS HE HAD USED IT AN HOUR AGO. KEPT COMFORTABLE. CALL LIGHT WITHIN REACH. WILL MONITOR PT. Addendum: 12/19/19 at 2208 by ALVA ELLIOTT RN RN Amended: Links added.
--- NOTE | 2019-12-19 22:00 | NUR ---
CALL PT CALLS AND IS CONCERN OF HIS PENIS BEING SWOLLEN. URINE OUTPUT IS GOOD. NO BLEEDING NOTED. EXPLAINED THAT IT MAY HAVE BEEN DUE TO INACTIVITY IN BED FOR TOO LONG. ENCOURAGED TO MOVE IN BED FROM SIDE TO SIDE WHENEVER HE CAN, EXPLAINED IMPORTANCE OF EARLY AMBULATION WITH SURGERY. PT VERBALIZES UNDERSTANDING. WILL ENDORSE IN AM FOR EVALUATION OF MD ON ROUNDS.
--- NOTE | 2019-12-19 23:40 | NUR ---
FEVER PCP INFORMS TOMOGRAPHIC TECH THAT PT HAS A TEMPERATURE= 101.1. PT IS WARM TO TOUCH. KEPT TEMPERATURE IN ROOM COOL. REMOVED BLANKETS AND ICE PACKS PROVIDED ON ARMPITS. PAGED DR GONZALEZ VIA ANSWERING SERVICE AND TOMOGRAPHIC TECH WAS INFORMED THAT MD IS OUT SICK AND NO SURGEON IS DESIGN ENGINEERING INTERN AT THIS TIME. RESOURCE NURSE MADE AWARE AND CP OF DR ANGELES WAS SECURED. TRIED TO CALL DR ANGELES BUT MD IS NOT PICKING UP AND UNABLE TO LEAVE A MESSAGE VOICE MAIL IS FULL. TRIED TO GET A PHONE NUMBER FOR ANYA MULLIGAN FOR BOTH SURGEONS BUT NONE FOUND. ANSWERING SERVICE DOES NOT HAVE A NUMBER TO PAGE THE PA EITHER. RESOURCE NURSE MADE AWARE AND WAS MADE AWARE AND STATED TO ORDER TYLENOL SUPPOSITORY UNDER DR ANGELES'S NAME MD IS PT'S SURGEON WHO OPERATED ON HIM. MEDICATED PT. WILL RE-ASSESS PT.
[2019-12-20] VITALS (8 sets, daily range): BP systolic 132–143; BP diastolic 79–87; PULSE 66–104; RESP 18–20; TEMP 98.6–99.1
[2019-12-20] MEDS ORDERED: ACETAMINOPHEN 650 MG SUPPOSITORY RC ONE (00:07)
[2019-12-20] MEDS ORDERED: ACETAMINOPHEN 650 MG SUPPOSITORY RC PRN (00:15)
--- NOTE | 2019-12-20 01:05 | NUR ---
RE-CHECK PT IS RESTING WELL, FAIRLY ASLEEP. RE-CHECKED TEMPERATURE=99.5. KEPT COMFORTABLE IN BED. WILL CONTINUE TO MONITOR.
--- NOTE | 2019-12-20 05:06 | NUR ---
ROUNDS PT RESTING WELL, FAIRLY ASLEEP STILL. NO DISTRESS NOTED. KEPT COMFORTABLE AND UNDISTURBED. FOR MORE CARE.
[2019-12-20] MEDS: SODIUM CHLORIDE 0.9% 1000ML 1,000 ML IV SCH ×2 (06:06→16:12)
--- NOTE | 2019-12-20 06:45 | NUR ---
MD DR ANGELES IN TO MAKE ROUNDS. MD INFORMED OF PT'S FEVER AND OF INABILITY TO GET A HOLD OF MD FOR ORDERS. MD STATED TO USE HER PAGER NEXT TIME AND NOT TO CALL HER CP. MD PLACE IN NEW ORDER, PLEASE REFER TO CPOE. IN TO SEE PT. MORE ORDERS WERE GIVEN, PLEASE REFER TO CPOE. REMOVED SX DRESSING TO PT'S ABDOMEN, OPEN BLISTERS ON FROM TAPE NOTED AFTER DRESSING WAS REMOVED BY MD. SX WOUND DRY AND INTACT. NO S AND SX OF INFECTION. YAZMIN INTACT TO SX WOUND ON THE RT SIDE OF THE ABDOMEN. COVERED MID INCISION WITH STERI STRIPS ORDERED. COVERED YAZMIN AND ARNULFO DRAIN SITES WITH WITH GAUZE THEN RE-APPLIED ABDOMINAL BINDER. CLAMPED NGT ORDERED BY . OTHER ORDERS TO BE CARRIED OUT BY INCOMING NURSE. FOR MORE CARE AND MANAGEMENT.
[2019-12-20] MEDS: ZOSYN 3.375GM+NS 50ML 50 ML IV SCH ×3 (07:19→20:46)
--- NOTE | 2019-12-20 08:06 | NUR ---
Per request by Dr. Mercado, called [facility]LL[facility] environmental compliance manager to discontinue epidural catheter. Called Raghav Chen CRNA on mobile and left message.
--- NOTE | 2019-12-20 08:49 | NUR ---
Called Raghav Chen, anesthesiology again to request discontinuing epidural catheter. Left message on mobile.
[2019-12-20] MEDS: KETOROLAC TROMETHAMINE 30MG/ML IV SCH ×3 (09:12→20:44)
--- NOTE | 2019-12-20 09:53 | NUR ---
Unable to reach Raghav Chen, anesthesiologist through mobile. Contacted Devin Koroma CRNA for removal of epidural catheter. Per Devin, will come to discontinue and yuan catheter can be removed at same time.
[2019-12-20] MEDS: IPRATROPIUM/ALBUTEROL SULFATE 3 ML SOLUTION IH SCH ×3 (12:40→23:13)
[2019-12-20] MEDS: MORPHINE SULFATE 4 MG/1ML SYG IV PRN ×2 (13:02→18:58)
[2019-12-20] MEDS: NEOMY SULF/BACITRAC ZN/POLY OINT 30GM TUBE TP SCH (15:53)
--- NOTE | 2019-12-20 20:20 | NUR ---
WOUND CARE REINFORCED ABD INCISION WITH STERI STRIPS. CHANGED SPLIT GAUZE AROUND X2 ARNULFO DRAINS, MINIMAL SEROSANGUINEOUS DRAINAGE NOTED AROUND BOTH GAUZE PADS. PT TOLERATED DRESSING CHANGE WELL.
[2019-12-20] MEDS: TAMSULOSIN HCL 0.4 MG CAP.ER.24H PO SCH (20:46)
[2019-12-21] VITALS (11 sets, daily range): BP systolic 132–154; BP diastolic 66–89; PULSE 9–116; RESP 17–20; TEMP 97.4–98.8
--- NOTE | 2019-12-21 01:20 | NUR ---
PT VOIDED 220 ML URINE NOTED IN URINAL. SAMPLE COLLECTED AND SENT TO LAB.
[2019-12-21] MEDS: KETOROLAC TROMETHAMINE 30MG/ML IV SCH ×4 (03:29→21:14)
[2019-12-21] MEDS: SODIUM CHLORIDE 0.9% 1000ML 1,000 ML IV SCH (04:30)
[2019-12-21] MEDS: IPRATROPIUM/ALBUTEROL SULFATE 3 ML SOLUTION IH SCH ×4 (06:30→23:05)
[2019-12-21] MEDS: ZOSYN 3.375GM+NS 50ML 50 ML IV SCH ×3 (06:37→22:30)
[2019-12-21] MEDS: MORPHINE SULFATE 4 MG/1ML SYG IV PRN ×3 (07:23→17:00)
[2019-12-21] MEDS: LIDOCAINE HCL-MPF 1% 2ML VIAL IV PRN ×2 (10:44→20:27)
[2019-12-21] MEDS: POTASSIUM CHLORIDE 20MEQ/100ML 100 ML IV PRN ×3 (10:44→20:27)
[2019-12-21] MEDS: NEOMY SULF/BACITRAC ZN/POLY OINT 30GM TUBE TP SCH (10:45)
[2019-12-21] MEDS: TAMSULOSIN HCL 0.4 MG CAP.ER.24H PO SCH (20:27)
[2019-12-22] VITALS (9 sets, daily range): BP systolic 141–160; BP diastolic 78–85; PULSE 88–111; RESP 18–20; TEMP 98–99
[2019-12-22] MEDS: LIDOCAINE HCL-MPF 1% 2ML VIAL IV PRN (01:45)
[2019-12-22] MEDS: POTASSIUM CHLORIDE 20MEQ/100ML 100 ML IV PRN (01:45)
[2019-12-22] MEDS: KETOROLAC TROMETHAMINE 30MG/ML IV SCH ×4 (03:06→20:47)
[2019-12-22] MEDS: ZOSYN 3.375GM+NS 50ML 50 ML IV SCH ×3 (06:01→20:46)
[2019-12-22] MEDS ORDERED: POTASSIUM CHLORIDE 10% ELIXIR 20 MEQ/15 ML UDCUP ONE (06:02)
[2019-12-22] MEDS: IPRATROPIUM/ALBUTEROL SULFATE 3 ML SOLUTION IH SCH ×3 (06:10→18:23)
--- NOTE | 2019-12-22 07:43 | NUR ---
ASSESSED PT. ABD VERY FIRM, DISTENDED, AND TENDER TO TOUCH. ABD DRESSING INTACT. ARNULFO DRAINS INTACT. PT COMPLAINS AND APPEARS IN A LOT OF PAIN. PT HAS TREMORS AND MOANS IN PAIN DURING ASSESSMENT OF ABD. PT DOES STATE HAVING A BOWEL MOVEMENT IN AM 12/22/19. PT IS VOIDING. HAD RE PARADA CHARGE NURSE REASSESS PT. BLADDER SCAN DONE BY RE PARADA AT 0743, BLADDER SCAN SHOWS [address] SALGADO. PENDING CALL BACK. WILL CONTINUE TO MONITOR PT.
--- NOTE | 2019-12-22 08:15 | NUR ---
DR ANGELES CALLED BACK, ORDERS GIVEN AND ENTERED.
[2019-12-22] MEDS: NEOMY SULF/BACITRAC ZN/POLY OINT 30GM TUBE TP SCH (08:33)
[2019-12-22] MEDS ORDERED: SIMETHICONE 80 MG TAB.CHEW PO SCH (09:00)
[2019-12-22] MEDS: FAMOTIDINE/PF 20 MG/2 ML VIAL IV SCH ×2 (09:41→20:46)
--- NOTE | 2019-12-22 11:30 | NUR ---
DR ANGELES ROUNDED AND ASSESSED PT. DISCUSSED KUB AND CHEST XRAY WITH PT.
[2019-12-22] MEDS: SIMETHICONE 80 MG TAB.CHEW PO SCH ×2 (15:03→20:47)
[2019-12-22] MEDS: TAMSULOSIN HCL 0.4 MG CAP.ER.24H PO SCH (20:47)
[2019-12-23] VITALS (14 sets, daily range): BP systolic 133–154; BP diastolic 80–87; PULSE 81–114; RESP 16–20; TEMP 97.9–98.6
[2019-12-23] MEDS: IPRATROPIUM/ALBUTEROL SULFATE 3 ML SOLUTION IH SCH ×5 (00:04→23:13)
[2019-12-23] MEDS: KETOROLAC TROMETHAMINE 30MG/ML IV SCH ×4 (03:03→21:03)
[2019-12-23] MEDS: ZOSYN 3.375GM+NS 50ML 50 ML IV SCH ×3 (06:15→21:02)
[2019-12-23] MEDS: SIMETHICONE 80 MG TAB.CHEW PO SCH ×3 (06:16→21:03)
--- NOTE | 2019-12-23 06:40 | NUR ---
Potassium 2.5 Started potassium first dose of IV and 1 dose of oral per protocol. ( See EMAR)
[2019-12-23] MEDS: LIDOCAINE HCL-MPF 1% 2ML VIAL IV PRN (06:48)
[2019-12-23] MEDS: POTASSIUM CHLORIDE 20MEQ/100ML 100 ML IV PRN ×2 (06:48→14:53)
[2019-12-23] MEDS: POTASSIUM CHLORIDE 10% ELIXIR 20 MEQ/15 ML UDCUP PO PRN ×4 (06:49→21:03)
[2019-12-23] MEDS: MORPHINE SULFATE 4 MG/1ML SYG IV PRN (06:59)
[2019-12-23] MEDS: FAMOTIDINE/PF 20 MG/2 ML VIAL IV SCH ×2 (09:55→21:04)
[2019-12-23] MEDS: METOCLOPRAMIDE 5 MG TABLET PO SCH (09:55)
[2019-12-23] MEDS: NEOMY SULF/BACITRAC ZN/POLY OINT 30GM TUBE TP SCH (09:56)
[2019-12-23] MEDS: TAMSULOSIN HCL 0.4 MG CAP.ER.24H PO SCH (21:03)
[2019-12-24] VITALS (10 sets, daily range): BP systolic 135–156; BP diastolic 76–96; PULSE 19–114; RESP 17–20; TEMP 97.5–100.9
[2019-12-24] MEDS: KETOROLAC TROMETHAMINE 30MG/ML IV SCH ×4 (02:56→20:07)
[2019-12-24] MEDS: SIMETHICONE 80 MG TAB.CHEW PO SCH ×3 (05:24→21:45)
[2019-12-24] MEDS: ZOSYN 3.375GM+NS 50ML 50 ML IV SCH ×3 (05:24→21:45)
[2019-12-24] MEDS: IPRATROPIUM/ALBUTEROL SULFATE 3 ML SOLUTION IH SCH ×4 (06:30→23:57)
[2019-12-24] MEDS: ACETAMINOPHEN-CODEINE 300/30MG TAB PO PRN ×2 (07:47→12:10)
[2019-12-24] MEDS: NEOMY SULF/BACITRAC ZN/POLY OINT 30GM TUBE TP SCH (09:00)
[2019-12-24] MEDS: FAMOTIDINE/PF 20 MG/2 ML VIAL IV SCH ×2 (09:46→20:07)
[2019-12-24] MEDS: METOCLOPRAMIDE 5 MG TABLET PO SCH (09:46)
[2019-12-24] MEDS: POTASSIUM CHLORIDE 10% ELIXIR 20 MEQ/15 ML UDCUP PO PRN ×4 (09:48→18:52)
[2019-12-24] MEDS: MORPHINE SULFATE 4 MG/1ML SYG IV PRN ×3 (09:56→18:50)
[2019-12-24] MEDS ORDERED: MAGNESIUM 2GM PREMIX 50ML 50 ML IV PRN (10:15)
[2019-12-24] MEDS: TAMSULOSIN HCL 0.4 MG CAP.ER.24H PO SCH (20:07)
[2019-12-24] MEDS: LIDOCAINE HCL-MPF 1% 2ML VIAL IV PRN (20:07)
[2019-12-24] MEDS: POTASSIUM CHLORIDE 20MEQ/100ML 100 ML IV PRN (20:07)
--- NOTE | 2019-12-24 20:10 | NUR ---
MEDS SHIFT ASSESSMENT DONE, PLEASE REFER TO CHART. DUE MEDS ADMINISTERED, TOLERATED WELL.KEPT RESTED AND COMFORTABLE IN CHAIR. CALL LIGHT WITHIN REACH. AWAITING PROVEENA VAC SET FOR CHANGING.
--- NOTE | 2019-12-24 20:20 | NUR ---
CHANGE ELISA GARRISON FOR DAY SHIFT, ABLE TO SECURE PROVEENA VAC SET. CHANGED WOUND VAC. WOUND NOTED TO BE DRAINING MOSTLY ON THE LOWER PART OF SX INCISION. CLEANSED SX WOUND WITH SALINE. PLACED NEW FOAM SET OF WOUND VAC AND TURNED ON PORTABLE SUCTION THEN SECURED TO PT. PT TOLERATED WOUND VAC CHANGE WELL. RE-APPLIED ABDOMINAL BINDER. KEPT COMFORTABLE IN BED. CALL LIGHT WITHIN REACH. WILL MONITOR PT. Addendum: 12/24/19 at 2228 by ALVA ELLIOTT RN RN Amended: Links added.
[2019-12-25] VITALS (10 sets, daily range): BP systolic 124–159; BP diastolic 73–99; PULSE 89–106; RESP 16–19; TEMP 97.5–98.8
--- NOTE | 2019-12-25 01:41 | NUR ---
ROUNDS PT FAIRLY ASLEEP WITH RESPIRATIONS EVEN AND UNLABORED. NO NOTED DISTRESS. KEPT UNDISTURBED FOR NOW. WILL MONITOR PT. CALL LIGHT WITHIN REACH.
[2019-12-25] MEDS: KETOROLAC TROMETHAMINE 30MG/ML IV SCH (02:45)
[2019-12-25] MEDS: ZOSYN 3.375GM+NS 50ML 50 ML IV SCH ×3 (05:06→21:53)
[2019-12-25] MEDS: SIMETHICONE 80 MG TAB.CHEW PO SCH ×3 (05:06→21:53)
[2019-12-25] MEDS: ACETAMINOPHEN-CODEINE 300/30MG TAB PO PRN ×3 (05:07→15:26)
--- NOTE | 2019-12-25 05:14 | NUR ---
MEDS PT ALREADY SITTING DOWN IN CHAIR. CLAIMS OF POST OP PAINS. DUE MEDS ADMINISTERED, TYLENOL #3 1 TAB PO GIVEN FOR PAINS. KEPT COMFORTABLE. WILL RE-ASSESS PT.
[2019-12-25] MEDS: IPRATROPIUM/ALBUTEROL SULFATE 3 ML SOLUTION IH SCH ×4 (06:51→23:40)
[2019-12-25] MEDS: FAMOTIDINE/PF 20 MG/2 ML VIAL IV SCH ×2 (09:28→20:12)
[2019-12-25] MEDS: METOCLOPRAMIDE 5 MG TABLET PO SCH (09:28)
[2019-12-25] MEDS: NEOMY SULF/BACITRAC ZN/POLY OINT 30GM TUBE TP SCH (09:32)
[2019-12-25] MEDS: MORPHINE SULFATE 4 MG/1ML SYG IV PRN ×2 (12:29→20:14)
[2019-12-25] MEDS: TAMSULOSIN HCL 0.4 MG CAP.ER.24H PO SCH (20:13)
[2019-12-26] VITALS (10 sets, daily range): BP systolic 117–141; BP diastolic 70–87; PULSE 86–110; RESP 16–20; TEMP 97.7–99
[2019-12-26] MEDS: SIMETHICONE 80 MG TAB.CHEW PO SCH ×3 (05:45→20:50)
[2019-12-26] MEDS: ZOSYN 3.375GM+NS 50ML 50 ML IV SCH ×3 (05:45→20:48)
[2019-12-26] MEDS: IPRATROPIUM/ALBUTEROL SULFATE 3 ML SOLUTION IH SCH ×2 (06:31→18:12)
[2019-12-26] MEDS: METOCLOPRAMIDE 5 MG TABLET PO SCH (10:09)
[2019-12-26] MEDS: FAMOTIDINE/PF 20 MG/2 ML VIAL IV SCH ×2 (10:09→20:50)
[2019-12-26] MEDS: NEOMY SULF/BACITRAC ZN/POLY OINT 30GM TUBE TP SCH (10:10)
[2019-12-26] MEDS: MORPHINE SULFATE 4 MG/1ML SYG IV PRN (11:04)
--- NOTE | 2019-12-26 12:27 | NUR ---
RDSCREEN - LOS X 9 Pt admitted with ventral hernia. S/p Exlap and hernia repair. Wound vac in place. Pt tolerating GI soft/Kane diet order with no report of GI distress, fair PO intake. Decreased serum potassium at 2.9, BUN 4. Recommend Ensure BID Recommend Stewart BID, 500mg Vitamin C (BID), 220mg ZnSO4 (QD) for wound healing support. RD to continue to monitor. Please notify RD as additional nutrition concerns arise. Thank you.
[2019-12-26] MEDS: TRAMADOL HCL 50 MG TABLET PO SCH (17:49)
[2019-12-26] MEDS: TAMSULOSIN HCL 0.4 MG CAP.ER.24H PO SCH (20:50)
[2019-12-26] MEDS: ACETAMINOPHEN-CODEINE 300/30MG TAB PO PRN (20:58)
[2019-12-27] VITALS (10 sets, daily range): BP systolic 128–141; BP diastolic 78–82; PULSE 72–99; RESP 14–20; TEMP 97.7–99
[2019-12-27] MEDS: SIMETHICONE 80 MG TAB.CHEW PO SCH ×4 (05:02→20:18)
[2019-12-27] MEDS: ACETAMINOPHEN-CODEINE 300/30MG TAB PO PRN (05:33)
[2019-12-27] MEDS: ZOSYN 3.375GM+NS 50ML 50 ML IV SCH ×3 (05:33→20:17)
[2019-12-27] MEDS: IPRATROPIUM/ALBUTEROL SULFATE 3 ML SOLUTION IH SCH ×5 (06:59→23:25)
[2019-12-27] MEDS: FAMOTIDINE/PF 20 MG/2 ML VIAL IV SCH ×2 (09:18→20:18)
[2019-12-27] MEDS: TRAMADOL HCL 50 MG TABLET PO SCH ×3 (09:18→20:20)
[2019-12-27] MEDS: METOCLOPRAMIDE 5 MG TABLET PO SCH (09:18)
--- NOTE | 2019-12-27 14:00 | NUR ---
SOAP SUDS ENEMA GIVEN WITH SMALL RESULTS.
[2019-12-27] MEDS: NEOMY SULF/BACITRAC ZN/POLY OINT 30GM TUBE TP SCH (15:01)
[2019-12-27] MEDS: TAMSULOSIN HCL 0.4 MG CAP.ER.24H PO SCH (20:18)
[2019-12-28] VITALS (9 sets, daily range): BP systolic 118–149; BP diastolic 69–91; PULSE 92–113; RESP 17–20; TEMP 96.4–98.6
[2019-12-28] MEDS: TRAMADOL HCL 50 MG TABLET PO SCH ×4 (03:11→19:50)
[2019-12-28] MEDS: SIMETHICONE 80 MG TAB.CHEW PO SCH ×3 (05:14→19:50)
[2019-12-28] MEDS: ZOSYN 3.375GM+NS 50ML 50 ML IV SCH ×3 (05:14→19:49)
[2019-12-28] MEDS: IPRATROPIUM/ALBUTEROL SULFATE 3 ML SOLUTION IH SCH ×3 (06:00→18:00)
[2019-12-28] MEDS: NEOMY SULF/BACITRAC ZN/POLY OINT 30GM TUBE TP SCH (09:00)
[2019-12-28] MEDS: METOCLOPRAMIDE 5 MG TABLET PO SCH (09:05)
[2019-12-28] MEDS: FAMOTIDINE/PF 20 MG/2 ML VIAL IV SCH ×2 (09:05→19:49)
[2019-12-28] MEDS ORDERED: POTASSIUM CHLORIDE 20 MEQ ERTAB PO SCH (09:15)
[2019-12-28] MEDS: PSYLLIUM SEED 1 EACH PACKET PO SCH ×2 (10:21→19:50)
--- NOTE | 2019-12-28 13:10 | NUR ---
ARNULFO DRAINS REMOVED WITH TIPS INTACT. RIGHT ARNULFO TIP MEASURED 22CM AND LEFT ARNULFO TIP MEASURED 20CM. DRESSING TO MID ABDOMEN CHANGED. NEW PREVENA DRESSING PLACED AND SET TO WOUND VAC MACHINE UNDER PREVENA THERAPY SETTINGS. DRESSING WITH SUCTION NOTED. NO MACERATION NOTED TO INCISION OR SURROUNDING SKIN. RE PARADA ASSISTED WITH PROCEDURE. PATIENT TOLERATED PROCEDURE WELL.
[2019-12-28] MEDS: TAMSULOSIN HCL 0.4 MG CAP.ER.24H PO SCH (19:50)
[2019-12-29] VITALS (8 sets, daily range): BP systolic 136–144; BP diastolic 80–92; PULSE 95–113; RESP 17–19; TEMP 97.5–98.9
[2019-12-29] MEDS: TRAMADOL HCL 50 MG TABLET PO SCH ×4 (02:45→20:19)
[2019-12-29] MEDS: POTASSIUM CHLORIDE 10% ELIXIR 20 MEQ/15 ML UDCUP PO PRN ×2 (04:22→08:40)
[2019-12-29] MEDS: SIMETHICONE 80 MG TAB.CHEW PO SCH ×3 (04:22→21:12)
[2019-12-29] MEDS: ZOSYN 3.375GM+NS 50ML 50 ML IV SCH ×3 (04:22→21:12)
[2019-12-29] MEDS: IPRATROPIUM/ALBUTEROL SULFATE 3 ML SOLUTION IH SCH ×3 (06:00→12:00)
--- NOTE | 2019-12-29 06:46 | NUR ---
RT told me that patient has been refusing duoneb treatments and he wants to go home already. he also believes that the patient does not need treatment
[2019-12-29] MEDS: METOCLOPRAMIDE 5 MG TABLET PO SCH (08:42)
[2019-12-29] MEDS: PSYLLIUM SEED 1 EACH PACKET PO SCH ×2 (08:42→21:13)
[2019-12-29] MEDS: FAMOTIDINE/PF 20 MG/2 ML VIAL IV SCH ×2 (08:42→20:19)
[2019-12-29] MEDS: NEOMY SULF/BACITRAC ZN/POLY OINT 30GM TUBE TP SCH (08:53)
[2019-12-29] MEDS ORDERED: DIATR MEGLU/DIATRIZOATE SODIUM 30 ML BOTTLE ONE (09:04)
[2019-12-29] MEDS: TAMSULOSIN HCL 0.4 MG CAP.ER.24H PO SCH (20:19)
[2019-12-29] MEDS: ACETAMINOPHEN-CODEINE 300/30MG TAB PO PRN (22:12)
[2019-12-30] MEDS: TRAMADOL HCL 50 MG TABLET PO SCH ×4 (02:11→20:24)
[2019-12-30 04:10] VITALS: BP 127/79; PULSE 119; RESP 20; TEMP 98.2
[2019-12-30] MEDS: SIMETHICONE 80 MG TAB.CHEW PO SCH ×3 (05:40→20:23)
[2019-12-30] MEDS: ACETAMINOPHEN-CODEINE 300/30MG TAB PO PRN (06:21)
[2019-12-30 08:00] VITALS: BP 149/83; PULSE 111; RESP 18; TEMP 98
[2019-12-30] MEDS: FAMOTIDINE/PF 20 MG/2 ML VIAL IV SCH ×2 (08:24→20:15)
[2019-12-30] MEDS: METOCLOPRAMIDE 5 MG TABLET PO SCH (08:25)
[2019-12-30] MEDS: PSYLLIUM SEED 1 EACH PACKET PO SCH ×2 (08:32→20:24)
[2019-12-30] MEDS: NEOMY SULF/BACITRAC ZN/POLY OINT 30GM TUBE TP SCH (08:32)
--- NOTE | 2019-12-30 11:05 | NUR ---
TYRONE Note: [facility] pending approval CM spoke to pt discussed Md recs for HH for [facility] managements, pt is agreeable for HH, telephone HA obtained for [facility]/Any that will accept. Faxed order and clinicals to [facility], confirmation received. Pt pending approval. Primary nurse aware. CM to cont to follow up.
--- NOTE | 2019-12-30 12:03 | NUR ---
CM Note: [facility] approval CM spoke to Bushra garcia/[facility] ROMANO, pt has approval. Primary nurse aware, to give report once pt ready to DC. CM to cont to follow up.
[2019-12-30 12:11] VITALS: BP 123/72; PULSE 111; RESP 19; TEMP 97.4
[2019-12-30 16:00] VITALS: BP 135/81; PULSE 97; RESP 18; TEMP 98.1
[2019-12-30 20:00] VITALS: BP 147/81; PULSE 98; RESP 17; TEMP 98.4
[2019-12-30] MEDS: TAMSULOSIN HCL 0.4 MG CAP.ER.24H PO SCH (20:14)
[2019-12-30 23:43] VITALS: BP 150/84; PULSE 99; RESP 18; TEMP 98.5
[2019-12-31 04:00] VITALS: BP 145/83; PULSE 102; RESP 18; TEMP 98.1
[2019-12-31] MEDS: ACETAMINOPHEN-CODEINE 300/30MG TAB PO PRN ×2 (04:08→22:22)
[2019-12-31] MEDS: SIMETHICONE 80 MG TAB.CHEW PO SCH ×3 (06:13→22:22)
[2019-12-31] MEDS: FAMOTIDINE/PF 20 MG/2 ML VIAL IV SCH ×2 (08:38→22:22)
[2019-12-31] MEDS: METOCLOPRAMIDE 5 MG TABLET PO SCH (08:39)
[2019-12-31] MEDS: NEOMY SULF/BACITRAC ZN/POLY OINT 30GM TUBE TP SCH (08:40)
[2019-12-31] MEDS: TRAMADOL HCL 50 MG TABLET PO SCH ×3 (08:41→23:58)
[2019-12-31] MEDS: PSYLLIUM SEED 1 EACH PACKET PO SCH ×2 (10:16→22:25)
[2019-12-31 11:22] VITALS: BP 134/79; PULSE 96; RESP 18; TEMP 97.9
--- NOTE | 2019-12-31 14:35 | NUR ---
FAMILY UPDATE PATIENT STATES HE WILL UPDATE FAMILY WITH INFORMATION, STATES HE WILL BE GOING HOME TODAY FAMILY NOT CALLED
--- NOTE | 2019-12-31 15:49 | NUR ---
RD FOLLOW UP Pt tolerating GI Soft/Stanton diet order with no report of GI distress. Good PO intake at 75-100%. Pt labs WNL. Pt with wound vac. Recommend Stewart BID, 500mg Vitamin C (BID), 220mg ZnSO4 (QD) for wound healing support. RD to continue to monitor. Please notify as additional nutrition concerns arise. Thank you.
[2019-12-31 16:56] VITALS: BP 126/84; PULSE 107; RESP 18; TEMP 98.2
[2019-12-31 19:00] VITALS: BP 141/81; PULSE 100; RESP 18; TEMP 98.5
--- NOTE | 2019-12-31 20:00 | NUR ---
As per Dr Mercado pt discharge orders placed on hold for tomorrow after breakfast, pt made aware states understanding. charge nurse Tiana and efra Howe made aware.
[2019-12-31] MEDS: TAMSULOSIN HCL 0.4 MG CAP.ER.24H PO SCH (22:22)
[2020-01-01] VITALS: BP 151/92; PULSE 104; RESP 18; TEMP 98.6
[2020-01-01] MEDS: TRAMADOL HCL 50 MG TABLET PO SCH ×2 (02:57→05:43)
[2020-01-01 04:00] VITALS: BP 135/76; PULSE 101; RESP 18; TEMP 98
[2020-01-01] MEDS: SIMETHICONE 80 MG TAB.CHEW PO SCH (05:43)
[2020-01-01 08:10] VITALS: BP 131/77; PULSE 122; RESP 20; TEMP 98.1
[2020-01-01] MEDS: PSYLLIUM SEED 1 EACH PACKET PO SCH (09:00)
[2020-01-01] MEDS: FAMOTIDINE/PF 20 MG/2 ML VIAL IV SCH (10:21)
[2020-01-01] MEDS: METOCLOPRAMIDE 5 MG TABLET PO SCH (10:21)
[2020-01-01] MEDS: NEOMY SULF/BACITRAC ZN/POLY OINT 30GM TUBE TP SCH (10:24)
--- NOTE | 2020-01-01 13:10 | NUR ---
PER MD DISCHARGED PT HOME WITH HOME HEALTH. REPORT CALLED TO [facility], SPOKE WITH MARCY. MARCY STATED THEY WERE WORKING ON GETTING ANOTHER PREVENA VAC FOR PT. FAXED OVER PREVENA VAC AND DRESSING CHANGE INSTRUCTIONS. PT WAS PROVIDED WITH APPOINTMENT DATES AND OFFICE NUMBERS. PT WAS EDUCATED ON HOW AND WHEN TO CHANGE PREVENA WOUND CANISTER. PT WAS ALSO INSTRUCTED AND I DEMONSTRATED ON HOW TO CHANGE A DRESSING IF HH WERE TO NEED TO REMOVED VAC IF CANISTER FILLED AND NO REPLACEMENT WAS AVAILABLE. PT STATES UNDERSTANDING. PT WAS MADE AWARE THAT [facility] WAS WORKING ON GETTING ANOTHER PREVENA VAC. STATES UNDERSTANDING. IV REMOVED. PT RIDE IS DOWNSTAIRS, WHEELED TO FRONT [facility] FOR TRANSPORT HOME VIA PRIVATE CAR.
== END 2020-01-01 13:15 | disposition home health service (06) | DRG 230 ==
LOC: EDSTATUS 12-17 09:00 → DAHIP 12-17 10:27 → 3AH 12-17 18:00
PROVIDERS: ADMIT Student in an Organized Health Care Education/Training Program; ATTEND Student in an Organized Health Care Education/Training Program
PROC: 0WUF0JZ Supplement Abdominal Wall with Synthetic Substitute, Open Approach (ICD-10-PCS; principal; 2019-12-17 12:15)
PROC: 0DQB0ZZ Repair Ileum, Open Approach (ICD-10-PCS; 2019-12-17 12:15)
PROC: 0KXL0ZZ Transfer Left Abdomen Muscle, Open Approach (ICD-10-PCS; 2019-12-17 12:15)
PROC: 0KXK0ZZ Transfer Right Abdomen Muscle, Open Approach (ICD-10-PCS; 2019-12-17 12:15)
DX: K43.9 Ventral hernia without obstruction or gangrene (principal); Z43.2 Encounter for attention to ileostomy; K66.0 Peritoneal adhesions (postprocedural) (postinfection); D64.9 Anemia, unspecified; J98.11 Atelectasis; E87.6 Hypokalemia; Z20.828 Contact with and (suspected) exposure to other viral communicable diseases; B19.20 Unspecified viral hepatitis C without hepatic coma; Z92.3 Personal history of irradiation; Z92.21 Personal history of antineoplastic chemotherapy; Z43.3 Encounter for attention to colostomy; Z85.048 Personal history of other malignant neoplasm of rectum, rectosigmoid junction, and anus

== ENCOUNTER → 2022-03-03 | Outpatient (CLI) | payer MEDICAID ==
[~2022-03-03] MED LIST: ACET-2247 PO; IOHEXOL 350 MG/ML 100ML INFUS..BTL IV ONE
== END | disposition home or self-care (01) ==
LOC: RAH 10:43
PROVIDERS: ATTEND Student in an Organized Health Care Education/Training Program
DX: K46.9 Unspecified abdominal hernia without obstruction or gangrene (principal); M47.817 Spondylosis without myelopathy or radiculopathy, lumbosacral region; K43.9 Ventral hernia without obstruction or gangrene; M48.07 Spinal stenosis, lumbosacral region
CPT/HCPCS: 74177; Q9967

== ENCOUNTER → 2024-01-10 | Outpatient (CLI) | payer MEDICAID ==
[~2024-01-10] MED LIST changes: +GADOTERATE MEGLUMINE 10 MMOL/20 ML VIAL IV ONE; -IOHEXOL 350 MG/ML 100ML INFUS..BTL IV ONE
== END | disposition home or self-care (01) ==
LOC: RAH 07:44
PROVIDERS: ATTEND Internal Medicine Gastroenterology
DX: K76.89 Other specified diseases of liver (principal); K80.20 Calculus of gallbladder without cholecystitis without obstruction; R94.5 Abnormal results of liver function studies
CPT/HCPCS: 74183; A9575

== ENCOUNTER → 2025-02-12 | Outpatient (CLI) | payer MEDICAID ==
[~2025-02-12] MED LIST changes: -GADOTERATE MEGLUMINE 10 MMOL/20 ML VIAL IV ONE; +IOHEXOL-350 75 ML VIAL IV ONE
--- NOTE | 2025-02-12 10:35 | HMCIMG ---
CT ABDOMEN/PELVIS W/CONTRAST REASON: PERIUMBILICAL PAIN COMPARISON: None. FINDINGS: Lung bases are clear. There are no focal liver lesions. There are multiple small cysts seen in the right liver.. There are normal-appearing kidneys.. Spleen and pancreas appear unremarkable. The gallbladder appears appears distended. There is possibly a calculus seen in the neck of the gallbladder.. There is a large umbilical hernia with wall defect approximately 10 cm. The loops of bowel which are not incarcerated. Bowel loops appear unremarkable. This includes normal appearance of the appendix There is no evidence of free fluid or intraperitoneal air. There are no focal fluid collections. Aorta demonstrates atherosclerotic changes with calcified plaque with no evidence of an residual dilatation. The retroperitoneum appear normal as do pelvic soft tissue structures. The anterior abdominal wall is intact. Osseous structures appear unremarkable. There is multilevel osteophytic changes and disc disease most severe at L5-S1 followed by L4-L5. There is vacuum phenomenon seen at L4-5. The prostate and seminal vesicle appears to be normal. IMPRESSION: 1. The gallbladder is distended with suspicion for possible stone in the neck of the gallbladder. I would recommend gallbladder sonogram for further workup.. 2. Umbilical midline hernia with loops of bowel which are not incarcerated. The wall defect of the abdominal wall is approximately 10 cm. 3. Osteoarthritic changes and disc disease severe at L5-S1 followed by L4-5. CT was performed with one or more following dose reduction techniques: automated exposure control, adjustment of the mA and kv according to patient's size, or use of a iterative reconstruction technique.
== END | disposition home or self-care (01) ==
LOC: RAH 08:26
PROVIDERS: ATTEND Internal Medicine Gastroenterology
DX: K42.9 Umbilical hernia without obstruction or gangrene (principal); K76.89 Other specified diseases of liver; K82.8 Other specified diseases of gallbladder; I70.0 Atherosclerosis of aorta; M47.817 Spondylosis without myelopathy or radiculopathy, lumbosacral region; R10.33 Periumbilical pain; R10.30 Lower abdominal pain, unspecified
CPT/HCPCS: 74177; Q9967